=== PATIENT | female | born 1970 | race Caucasian/White ===

== ENCOUNTER → 2016-11-17 | Outpatient (CLI) | payer OTHER ==
[~2016-11-17] MED LIST: DICY10CA26 PO; HCT25T PO; HYDR-34 PO; IBUP800T26 PO; LORA1TAB PO; MELO-195 PO; METO-272 PO; OXYC-199 PO; PNT40TEC PO; POTA10TA36 PO; SUCR1TAB23 PO; VNL75CCR
--- OUTSIDE RECORDS SUMMARY | 2016-11-17 15:30 | XMS REPORT | Continuity of Care Document ---
Author Author [facility] Organization [facility] Address Unknown Phone Unavailable Care Team Providers Care Cargo Service Agent Name Role Phone KELLI MILLER MD PCP Insurance Providers Payer Name Policy Number Subscriber Name Relationship [facility] [id number] Fernanda Villa 18 Self / Same As Patient Advance Directives Directive Response Recorded Date/Time Advance Directives Yes 12/26/14 9:44am Health Care Power of Maintenance Instructor No 12/26/14 9:44am Organ Donor Yes 12/26/14 9:44am Resuscitation Status Full Code 12/26/14 9:44am Problems No known problems or medical conditions. Medications Medication Dose Route Sig Days/Qty Instructions Order Date Discontinued Date Status Venlafaxine HCl 11/04/09 11/01/13 Discontinued Meloxicam (Mobic) 15 Mg PO DAILY 11/04/09 Active Lorazepam 1 Mg PO THREE TIMES A DAY PRN ANXIETY NEEDED FOR ANXIETY 11/04/09 01/06/14 Discontinued Hydrochlorothiazide 25 Mg PO DAILY 11/05/09 Active Potassium Chloride 10 Meq PO DAILY 11/05/09 Active Metoprolol Succinate 50 Mg PO DAILY 11/01/13 Active Hydrochlorothiazide 25 Mg PO DAILY@0900 0 Qty 11/02/13 01/06/14 Discontinued Dicyclomine HCl 1 Each PO FOUR TIMES DAILY For GI UPSET 120 Qty Active Acetaminophen/Hydrocodone Bitart 1 Ea PO EVERY 4HRS For PAIN 30 Qty Active Pantoprazole Sodium 1 Tab PO DAILY 90 Qty 11/02/13 Active Sucralfate 1 Gm PO FOUR TIMES DAILY 7 Days 11/02/13 Active Oxycodone Hcl/Acetaminophen 1-2 Tab PO EVERY 4HRS 1 Qty 01/09/14 Active Ibuprofen (Motrin) 800 Mg PO q8h PRN PAIN 1 Qty 01/09/14 Active Social History Social History Problem Response Recorded Date/Time Alcohol Use Occasionally Uses 11/01/2013 10:23am Recreational Drug Use No 11/01/2013 10:23am Recent Foreign Travel No 11/01/2013 10:23am Recent Infectious Disease Exposure No 11/01/2013 10:23am Hospitalization with Isolation Denies 01/10/2014 4:30pm Sexually Transmitted Disease No 11/01/2013 10:23am Hospital Discharge Instructions No hospital discharge instructions. Plan of Care No plan of care. Functional Status No functional status results. Allergies, Adverse Reactions, Alerts Allergen Type Severity Reaction Status Last Updated No Known Drug Allergies Active 11/04/09 Immunizations Name Given Type Date of Influenza Vaccine 07/19/13 Historical Vital Signs Acute Vital Signs Vital Response Date/Time Temperature (Fahrenheit) 95.5 degrees F (97.6 - 99.5) Temperature (Calculated Celsius) 35.72220 degrees C (36.4 - 37.5) Temperature Source Tympanic Pulse Rate (adult) 62 bpm (60 - 90) Respiratory Rate 14 bpm (12 - 24) O2 Sat by Pulse Oximetry 100 % (88 - 100) Blood Pressure 141/89 mm Hg Pain Pain Intensity 0 Height (Feet) 5 feet Height (Inches) 5.00 inches Height (Calculated Centimeters) 165.677985 cm Weight (Pounds) 125 pounds Weight (Calculated Grams) 05988.047 gm Weight (Calculated Kilograms) 56.663393 kilograms Calculated BMI 20.80 Results No known relevant diagnostic tests, laboratory data and/or discharge summary. Procedures No known history of procedures. Encounters Encounter Location Date/Time Registered Clinic Via [facility] 12/26/14 9:18am Registered Clinic [facility] 12/12/14 2:33pm Registered Recurring [facility] 11/26/14 3:44pm
== END ==
LOC: LAB 15:26
PROVIDERS: ATTEND Nurse Practitioner Family
DX: R06.00 Dyspnea, unspecified (principal)
CPT/HCPCS: 36415; 85379

== ENCOUNTER → 2016-11-30 | Outpatient (CLI) | payer OTHER ==
[~2016-11-30] MED LIST changes: +CATHETER FLUSH 10 ML SYR IV PRN; +IOHEXOL 350 MG/ML 100 ML (OMNIPAQUE 350) VIAL IV ONE; +NS 100 ML (IVPB) BAG IV ONE
--- OUTSIDE RECORDS SUMMARY | 2016-11-30 10:19 | XMS REPORT | Continuity of Care Document ---
Author Author [facility] Organization [facility] Address Unknown Phone Unavailable Care Team Providers Care Stock Sorter Name Role Phone KELLI MILLER MD PCP Insurance Providers Payer Name Policy Number Subscriber Name Relationship [facility] [id number] Fernanda Villa 19 Self / Same As Patient Advance Directives Directive Response Recorded Date/Time Advance Directives Yes 12/26/14 9:44am Health Care Power of Bank Vault Attendant No 12/26/14 9:44am Organ Donor Yes 12/26/14 [...] F (97.6 - 99.5) Temperature (Calculated Celsius) 35.94529 degrees C (36.4 - 37.5) Temperature Source Tympanic Pulse Rate (adult) 62 bpm (60 - 90) Respiratory Rate 14 bpm (12 - 24) O2 Sat by Pulse Oximetry 100 % (88 - 100) Blood Pressure 141/89 mm Hg Pain Pain Intensity 0 Height (Feet) 5 feet Height (Inches) 5.00 inches Height (Calculated Centimeters) 165.428102 cm Weight (Pounds) 125 pounds Weight (Calculated Grams) 97590.047 gm Weight (Calculated Kilograms) 56.237873 kilograms Calculated BMI 20.80 Results No known relevant diagnostic tests, laboratory data and/or discharge summary. Procedures No known history of procedures. Encounters Encounter Location Date/Time Registered Clinic [facility] 12/26/14 9:18am Registered Clinic [facility] 12/12/14 2:33pm Registered Recurring [facility] 11/26/14 3:44pm
--- NOTE | 2016-11-30 11:05 | Diagnostic Imaging Report ---
PROCEDURE: CT abdomen and pelvis with and without contrast. TECHNIQUE: Precontrast acquisitions were acquired through the abdomen and pelvis. Multiple contiguous axial images were obtained through the abdomen and pelvis after the administration of intravenous contrast. INDICATION: Abdominal pain, major bloating, lower back pain, stomach pain, weight gain for about 3 weeks. CONTRAST: 100 mL of Omnipaque 350 was given intravenously. COMPARISON STUDY: Gallbladder ultrasound from [address] chest from November 2015. FINDINGS: There is mild right hydronephrosis with a 1-2 mm calculi in the distal right ureter seen on noncontrast studies 62. No other calculi are identified. The lung bases are clear. The gallbladder is absent. The liver, spleen, pancreas, adrenal gland and left kidney are normal. Urinary bladder appears normal. No ascites, free air or abnormal adenopathy is present. There are no hernias. Moderate to large amount of stool seen throughout the colon. Small bowel loops appear normal. Questionable mild bowel wall thickening of the sigmoid colon. No adjacent inflammatory changes are present. There is no ascites, free air or loculated fluid collections. The appendix is not definitely identified. IMPRESSION: 1. There is a mild right hydronephrosis with 1-2 mm calculi in the region of the distal right ureter. 2. Constipation. 3. Questionable mild thickening of the sigmoid colon. This is upper normal. No focal areas of thickening are present. Possible mild colitis. Dictated by: Dictated on workstation # [id number]
== END ==
LOC: RAD 10:17
PROVIDERS: ATTEND Nurse Practitioner Family
DX: N20.1 Calculus of ureter (principal); K59.00 Constipation, unspecified
CPT/HCPCS: 74178

== ENCOUNTER → 2017-01-16 | Outpatient (CLI) | payer OTHER ==
[~2017-01-16] MED LIST changes: -CATHETER FLUSH 10 ML SYR IV PRN; -IOHEXOL 350 MG/ML 100 ML (OMNIPAQUE 350) VIAL IV ONE; -NS 100 ML (IVPB) BAG IV ONE
--- NOTE | 2017-01-16 10:57 | Diagnostic Imaging Report ---
INDICATION: Right-sided flank pain. FINDINGS: The bowel gas pattern is normal. There is calcification in the right side of the abdomen but, with concurrent CT correlation, this appears to relate to stomach contents, probably a pill. Calcifications in the pelvis are likely phleboliths. IMPRESSION: No urinary tract stones. Dictated by: Dictated on workstation # [id number]
--- NOTE | 2017-01-16 10:58 | Diagnostic Imaging Report ---
PROCEDURE: CT urinary tract, rule out kidney stone. TECHNIQUE: Multiple contiguous axial images were obtained through the abdomen and pelvis without the use of intravenous contrast. INDICATION: Right flank pain. COMPARISON: 11/30/2016. FINDINGS: The lung bases appear clear. The liver, the spleen, the pancreas, and the adrenal glands appear unremarkable. The kidneys demonstrate no hydronephrosis and no stones. The abdominal aorta is normal in caliber. No para-aortic significantly enlarged lymph node is seen. No significant free fluid or fluid collection in the abdomen or pelvis is seen. There is wall thickening within the urinary bladder with question of tiny fat or air density near the anterior aspect of the urinary bladder. This is concerning for cystitis. There is suggestion of prior hysterectomy. The osseous structures appear grossly unremarkable. IMPRESSION: There is significant thickening in the anterior aspect of the urinary bladder wall with surrounding fatty stranding likely related to cystitis. Low density focus in the anterior aspect of the urinary bladder shows question of an air bubble. A gas-forming infection is not excluded. No urinary tract stones. The findings were discussed with Dr. Goldsmith by Dr. Smith at time of dictation. Dictated by: Dictated on workstation # [id number]
== END ==
LOC: RAD 10:26
PROVIDERS: ATTEND Urology
DX: N32.9 Bladder disorder, unspecified (principal); Z87.442 Personal history of urinary calculi
CPT/HCPCS: 74000; 74176

== ENCOUNTER → 2017-04-20 | Outpatient (CLI) | payer OTHER ==
[~2017-04-20] MED LIST changes: +CIPR-225 PO; +ESTR1PAT92 TD; +FURO20TA4 PO; +HYDR-757 PO; +IBUP-1773 PO; +LACT1TAB25 PO; +LIOT5TAB3 PO; +LORA2TAB PO; +MELO15TA39 PO; +METR500T PO; +NFNEB10T PO; +THYR65TA5 PO; +TRAM50TA2 PO; +TRIA1TAB3 PO; +VNL75T PO
--- NOTE | 2017-04-20 11:48 | Diagnostic Imaging Report ---
Transabdominal and transvaginal pelvic ultrasound. INDICATION: Left pelvic pain. The patient is status post hysterectomy and right oophorectomy. FINDINGS: The left ovary is 2.9 x 2.2 x 2.9 CM. There is a 1.8 x 1.7 x 2 cm left ovarian cyst. There is slightly thickened wall with vascularity seen. This probably represents a corpus luteum cysts. No solid mass seen. The venous and arterial waveforms are demonstrated over the left ovary. The urinary bladder appears unremarkable. The vaginal cuff region and right adnexa area appear grossly unremarkable. IMPRESSION: Findings suggestive of a left ovarian corpus luteum cyst. Dictated by: Dictated on workstation # [id number]
--- NOTE | 2017-04-20 11:57 | Diagnostic Imaging Report ---
PROCEDURE: US Thyroid. TECHNIQUE: Multiple real-time grayscale images were obtained of the thyroid in various projections. Thyroid ultrasound. INDICATION: Thyromegaly. Difficulty swallowing. FINDINGS: The right thyroid lobe is 4.8 x 1.3 x 1.3 cm. The left lobe is 5.1 x 1.1 x 1.4 CM. Colloid cyst are seen measuring up to 6 mm in the lower right lobe with internal debris suggested. No internal vascularity is seen. Smaller colloid cyst measuring 3 mm is seen in the lower aspect of the left lobe. No other lesion is seen. No definite solid or large nodule noted. No adjacent cervical lymphadenopathy or mass identified. IMPRESSION: Subcentimeter lesions described are probably colloid cysts. Dictated by: Dictated on workstation # [id number]
== END ==
LOC: RAD 10:47
PROVIDERS: ATTEND Nurse Practitioner Family
DX: R10.2 Pelvic and perineal pain (principal); R13.10 Dysphagia, unspecified; E01.0 Iodine-deficiency related diffuse (endemic) goiter; Z90.710 Acquired absence of both cervix and uterus; Z90.721 Acquired absence of ovaries, unilateral
CPT/HCPCS: 76536; 76830; 76856

== ENCOUNTER → 2017-05-05 | Outpatient (CLI) | payer OTHER ==
[2017-05-05 13:07] LABS: BASOPHILS # (AUTO) 0.1 10^3/uL (0.0-0.1); BASOPHILS % (AUTO) 1 % (0-10); EOSINOPHILS # (AUTO) 0.2 10^3/uL (0.0-0.3); EOSINOPHILS % (AUTO) 2 % (0-10); LYMPHOCYTES # (AUTO) 2.6 X 10^3 (1.0-4.0); LYMPHOCYTES % (AUTO) 29 % (12-44); MEAN CORPUSCULAR HEMOGLOBIN 31 PG (25-34); MEAN CORPUSCULAR HGB CONC 33 G/DL (32-36); MEAN CORPUSCULAR VOLUME 94 FL (80-99); MEAN PLATELET VOLUME 10.5 FL (7.4-10.4); MONOCYTES # (AUTO) 0.9 X 10^3 (0.0-1.0); MONOCYTES % (AUTO) 10 % (0-12); NEUTROPHILS # (AUTO) 5.3 X 10^3 (1.8-7.8); NEUTROPHILS % (AUTO) 58 % (42-75); PLATELET COUNT 271 10^3/uL (130-400); RED BLOOD COUNT 4.83 10^6/uL (4.35-5.85); RED CELL DISTRIBUTION WIDTH 13.6 % (10.0-14.5); WHITE BLOOD COUNT 9.1 10^3/uL (4.3-11.0)
[2017-05-05 13:30] LABS: ERYTHROCYTE SEDIMENTATION RATE 3 MM/HR (0-20)
[2017-05-08 07:54] LABS: LYME AB INTERP Negative (Negative)
[2017-05-08 08:20] LABS: TULAREMIA ANTIBODY <1:20
[2017-05-08 13:51] LABS: EHRLICHIA CHAFFEENSIS G ABY <1:16 (<1:16)
[2017-05-08 15:41] LABS: IGG ROCKY MOUNTAIN SPOTTED FEV <1:16 (<1:16); IGM ROCKY MOUNTAIN SPOTTED FEV <1:10 (<1:10)
== END ==
LOC: LAB 12:01
PROVIDERS: ATTEND Nurse Practitioner Family
DX: R06.00 Dyspnea, unspecified (principal); M06.9 Rheumatoid arthritis, unspecified
CPT/HCPCS: 36415; 82088; 83540; 85025; 85379; 85652; 86038; 86141; 86430; 86618; 86666; 86668; 86757

== ENCOUNTER 2017-06-06 05:38 | Outpatient (CLI) | payer OTHER ==
[~2017-06-06] VITALS: Ht 165.1 cm; Wt 65.8 kg
[~2017-06-06 05:38] MED LIST changes: -CIPR-225 PO; -ESTR1PAT92 TD; -FURO20TA4 PO; -HYDR-757 PO; -IBUP-1773 PO; -LACT1TAB25 PO; -LIOT5TAB3 PO; -LORA2TAB PO; -MELO15TA39 PO; -METR500T PO; -NFNEB10T PO; -THYR65TA5 PO; -TRAM50TA2 PO; -TRIA1TAB3 PO; -VNL75T PO
[2017-06-06] MEDS ORDERED: LIOT5TAB3 PO (12:08)
[2017-06-06] MEDS ORDERED: LORA2TAB PO (12:08)
[2017-06-06] MEDS ORDERED: TRIA1TAB3 PO (12:08)
[2017-06-06] MEDS ORDERED: ESTR1PAT92 TD (12:08)
[2017-06-06] MEDS ORDERED: NFNEB10T PO (12:08)
[2017-06-06] MEDS ORDERED: VNL75T PO (12:08)
[2017-06-06] MEDS ORDERED: THYR65TA5 PO (12:08)
[2017-06-06] MEDS ORDERED: MELO15TA39 PO (12:34)
[2017-06-06] MEDS ORDERED: TRAM50TA2 PO (12:34)
[2017-06-06] MEDS ORDERED: FURO20TA4 PO (12:34)
== END 2017-06-06 12:35 ==
LOC: PREOP 05:38
PROVIDERS: ATTEND Obstetrics & Gynecology
DX: Z01.818 Encounter for other preprocedural examination (principal); R10.2 Pelvic and perineal pain; N83.202 Unspecified ovarian cyst, left side; K66.0 Peritoneal adhesions (postprocedural) (postinfection)

== ENCOUNTER 2017-06-20 17:14 | Inpatient (IN) | payer OTHER ==
[2017-06-20] VITALS (13 sets, daily range): BP systolic 81–121; BP diastolic 42–79
[~2017-06-20] VITALS: Ht 165.1 cm; Wt 64.4 kg
[~2017-06-20 17:14] MED LIST changes: +ESTR1PAT92 TD; +FURO20TA4 PO; +HYDR-757 PO; +IBUP-1773 PO; +LIOT5TAB3 PO; +LORA2TAB PO; +MELO15TA39 PO; +NFNEB10T PO; +THYR65TA5 PO; +TRAM50TA2 PO; +TRIA1TAB3 PO; +VNL75T PO
--- NOTE | 2017-06-20 17:25 | ED General ---
General Stated Complaint: CONVULSIONS Source of Information: Patient Exam Limitations: No Limitations History of Present Illness Time Seen by Provider: 17:22 Initial Comments To ER with reports of convulsions. EMS was summoned by family for seizure-like activity. Patient had cervical injections for neck pain today by Dr. [facility] at [place]. She is also on oxycodone for a recent ovary removal according to her . She has no history of anything like this. Upon EMS arrival she was noted to be flopping all over the bed but alert and looking around the room while doing so in a very unusual manner. She has no seizure history. EMS arrived and gave 5 mg of IV Versed without improvement. She Apparently did run out of lorazepam 2mg #21 which is an 11 day supply but states to his knowledge she has only been out for a day or so. Timing/Duration: 1-2 Days Severity: Moderate Allergies and Home Medications Allergies Coded Allergies: No Known Drug Allergies (Unverified , 11/04/09) Home Medications Estradiol 1 Each Patch.tdsw, 1 EACH TD Twice weekly, (Reported) Furosemide 20 Mg Tablet, 20 MG PO DAILY, (Reported) Hydrocodone/Acetaminophen 1 Each Tablet, 1 EACH PO Q6H, #30 Prescribed by: WANG SCHROEDER on 06/09/17 1536 Lorazepam 2 Mg Tablet, 2 MG PO HS, (Reported) Nebivolol HCl 10 Mg Tab, 10 MG PO DAILY, (Reported) Triamterene/Hydrochlorothiazid 1 Each Tablet, 1 EACH PO DAILY, (Reported) Venlafaxine HCl 75 Mg Tab, 75 MG PO HS, (Reported) Constitutional: see HPI EENTM: see HPI Respiratory: no symptoms reported Cardiovascular: no symptoms reported Genitourinary: no symptoms reported Musculoskeletal: no symptoms reported Skin: no symptoms reported Psychiatric/Neurological: No Symptoms Reported Hematologic/Lymphatic: No Symptoms Reported Immunological/Allergic: no symptoms reported Past Oabtccg-Hyaiok-Eixcta Hx Patient Social History Recent Foreign Travel: No Contact w/Someone Who Travel: No Recent Hopitalizations: No Immunizations Up To Date Date of Influenza Vaccine: Jul 19, 2013 Seasonal Allergies Seasonal Allergies: No Surgeries Surgeries: Adenoidectomy, Appendectomy, Gallbladder, Hysterectomy, Tonsillectomy Cardiovascular Cardiac Disorders: Hypertension Reproductive System Hx Reproductive Disorders: Yes Sexually Transmitted Disease: No Genitourinary Genitourinary Disorders: Kidney Infection Gastrointestinal Gastrointestinal Disorders: Chronic Constipation Musculoskeletal Musculoskeletal Disorders: Rheumatoid Arthritis, Chronic Back Pain Psychosocial Behavioral Health Disorders: Anxiety Physical Exam Vital Signs Vital Sign - Last 12Hours 06/20/17 17:15 Temp 97.5 Pulse 115 Resp 18 B/P (MAP) 142/79 Pulse Ox 95 Capillary Refill : General Appearance: No Apparent Distress, WD/WN Eyes: Bilateral Eye Normal Inspection, Bilateral Eye PERRL, Bilateral Eye EOMI HEENT: PERRL/EOMI, TMs Normal, Normal ENT Inspection Neck: Full Range of Motion, Normal Inspection Respiratory: No Accessory Muscle Use, No Respiratory Distress Cardiovascular: Regular Rate, Rhythm, Normal Peripheral Pulses Gastrointestinal: Normal Bowel Sounds, Non Tender, Soft Extremity: Normal Capillary Refill, Normal Inspection Neurologic/Psychiatric: Alert Skin: Normal Color Comments Intermittent bouts of convusions on the bed including both arms and both legs and arching her back while keeping her eyes open. Some of these convulsions are so intense that her entire body flops up off of the bed. When asked where she is at she replies "wheres wilbert?". She is not postictal after these episodes. She appears to be unable to speak she does not answer questions other than the aforementioned response. This is not typical seizure activity there is none of the typical myoclonus, in fact she actually is convulsing to such a degree that she nearly falls off of the bed more than once. additional 1mg of IV lorazepam ordered. Progress/Results/Core Measures Results/Orders Lab Results Laboratory Tests Test 06/20/17 17:20 Range/Units White Blood Count 12.2 H 4.3-11.0 10^3/uL Red Blood Count 4.70 4.35-5.85 10^6/uL Hemoglobin 14.6 11.5-16.0 G/DL Hematocrit 41 35-52 % Mean Corpuscular Volume 87 80-99 FL Mean Corpuscular Hemoglobin 31 25-34 PG Mean Corpuscular Hemoglobin Concent 36 32-36 G/DL Red Cell Distribution Width 12.5 10.0-14.5 % Platelet Count 250 130-400 10^3/uL Mean Platelet Volume 10.5 H 7.4-10.4 FL Neutrophils (%) (Auto) 83 H 42-75 % Lymphocytes (%) (Auto) 12 12-44 % Monocytes (%) (Auto) 5 0-12 % Eosinophils (%) (Auto) 0 0-10 % Basophils (%) (Auto) 0 0-10 % Neutrophils # (Auto) 10.1 H 1.8-7.8 X 10^3 Lymphocytes # (Auto) 1.4 1.0-4.0 X 10^3 Monocytes # (Auto) 0.6 0.0-1.0 X 10^3 Eosinophils # (Auto) 0.1 0.0-0.3 10^3/uL Basophils # (Auto) 0.0 0.0-0.1 10^3/uL Sodium Level 135 135-145 MMOL/L Potassium Level 3.7 3.6-5.0 MMOL/L Chloride Level 96 L 98-107 MMOL/L Carbon Dioxide Level 23 21-32 MMOL/L Anion Gap 16 H 5-14 MMOL/L Blood Urea Nitrogen 25 H 7-18 MG/DL Creatinine 1.09 0.60-1.30 MG/DL Estimat Glomerular Filtration Rate 54 BUN/Creatinine Ratio 23 Glucose Level 106 H 70-105 MG/DL Calcium Level 9.4 8.5-10.1 MG/DL Total Bilirubin 0.7 0.1-1.0 MG/DL Aspartate Amino Transf (AST/SGOT) 21 5-34 U/L Alanine Aminotransferase (ALT/SGPT) 34 0-55 U/L Alkaline Phosphatase 59 40-136 U/L Total Protein 7.7 6.4-8.2 GM/DL Albumin 4.2 3.2-4.5 GM/DL Thyroid Stimulating Hormone (TSH) 1.18 0.35-4.94 UIU/ML Free Thyroxine 0.83 0.70-1.48 NG/DL Serum Alcohol < 10 <10 MG/DL My Orders Orders - VERO MERAZ APRN Lorazepam Injection (Ativan Injection) (06/20/17 17:30) Cbc With Automated Diff (06/20/17 17:19) Comprehensive Metabolic Panel (06/20/17 17:19) Ua Culture If Indicated (06/20/17 17:19) Drug Screen Stat (Urine) (06/20/17 17:19) Saline Lock/Iv-Start (06/20/17 17:19) Ct Head/Cervical Spine Wo (06/20/17 17:21) Lorazepam Injection (Ativan Injection) (06/20/17 17:30) Thyroid Stimulating Hormone (06/20/17 17:29) Free T4 (Free Thyroxine) (06/20/17 17:29) Alcohol (06/20/17 17:29) Lorazepam Injection (Ativan Injection) (06/20/17 17:45) Ns Iv 1000 Ml (Sodium Chloride 0.9%) (06/20/17 18:00) Lorazepam Injection (Ativan Injection) (06/20/17 18:15) Lorazepam Injection (Ativan Injection) (06/20/17 18:30) Diphenhydramine Injection (Benadryl Inje (06/20/17 19:00) Medications Given in ED Current Medications Medications Dose Ordered Sig/Eugenio Route Start Time Stop Time Status Last Admin Dose Admin Diphenhydramine HCl 12.5 mg ONCE ONCE IVP 06/20/17 19:00 06/20/17 19:01 DC 06/20/17 18:58 12.5 MG Lorazepam 1 mg ONCE ONCE IVP 06/20/17 17:30 06/20/17 17:31 DC 06/20/17 17:30 1 MG Lorazepam 1 mg ONCE ONCE IVP 06/20/17 17:30 06/20/17 17:31 DC 06/20/17 17:48 1 MG Lorazepam 1 mg ONCE ONCE IVP 06/20/17 18:30 06/20/17 18:31 DC 06/20/17 18:37 1 MG Lorazepam 1 mg PRN ONCE IVP 06/20/17 17:45 06/20/17 17:46 DC 06/20/17 17:58 1 MG Lorazepam 2 mg ONCE ONCE IVP 06/20/17 18:15 06/20/17 18:16 DC 06/20/17 18:10 2 MG Vital Signs/I&O Vital Sign - Last 12Hours 06/20/17 17:15 Temp 97.5 Pulse 115 Resp 18 B/P (MAP) 142/79 Pulse Ox 95 Departure Communication (Admissions) Progress Notes 1841-her convulsions continue but are less intense than upon arrival. This appears to be more of a dystonic reaction though she has had no substances to be having a dystonic reaction to. In total, she is already had 6 mg of IV lorazepam and 5 mg of Versed. When the nurse started her IV here she is able to hold the arm still and when verifying medications the patient is able to answer "yes" or "no" to the nurse. 1853-discussed the case with Dr. Victoria. We will admit to ICU, consultation ICU overnight. I'll try a dose of 12 mg of Benadryl just in case this is a dystonic reaction 1901- convulsions stopped, she is still arousable to verbal stimuli and vitals are stable. We'll proceed with CT now that she is able to hold still for the exam. 2032-I did discuss the case with radiologist Dr. Richard at [facility]. She feels that the extradural air is most likely related to the epidural steroid injection today and even without the history of epidural injection it would be of very little clinical significance. Patient continues to rest at this time and the convulsions of stopped. Vitals remain stable. Impression Impression: Primary Impression: Dystonia Additional Impression: Convulsion disorder Disposition: ADMITTED INPATIENT Condition: Stable Admissions Decision to Admit Reason: Admit from ER (General) Decision to Admit/Date: Jun 20, 2017 Time/Decision to Admit Time: 18:54 Departure-Patient Inst. Referrals: MARCIE MIN DO (PCP) Primary Care Physician TRINY MIN DNP (Family) Primary Care Physician VERO MERAZ APRN Jun 20, 2017 17:25
[2017-06-20 17:30] LABS: BASOPHILS % (AUTO) 0 % (0-10); EOSINOPHILS # (AUTO) 0.1 10^3/uL (0.0-0.3); EOSINOPHILS % (AUTO) 0 % (0-10); LYMPHOCYTES # (AUTO) 1.4 X 10^3 (1.0-4.0); LYMPHOCYTES % (AUTO) 12 % (12-44); MEAN CORPUSCULAR HEMOGLOBIN 31 PG (25-34); MEAN CORPUSCULAR HGB CONC 36 G/DL (32-36); MEAN CORPUSCULAR VOLUME 87 FL (80-99); MEAN PLATELET VOLUME 10.5 FL (7.4-10.4); MONOCYTES # (AUTO) 0.6 X 10^3 (0.0-1.0); MONOCYTES % (AUTO) 5 % (0-12); NEUTROPHILS # (AUTO) 10.1 X 10^3 (1.8-7.8); NEUTROPHILS % (AUTO) 83 % (42-75); PLATELET COUNT 250 10^3/uL (130-400); RED CELL DISTRIBUTION WIDTH 12.5 % (10.0-14.5); WHITE BLOOD COUNT 12.2 10^3/uL (4.3-11.0)
[2017-06-20] MEDS ORDERED: LORazepam INJ 2 MG/ML (ATIVAN) VIAL IVP ONE ×5 (17:30→18:30)
[2017-06-20 17:49] LABS: ALCOHOL < 10 MG/DL (<10)
[2017-06-20 17:50] LABS: ALBUMIN 4.2 GM/DL (3.2-4.5); BILIRUBIN,TOTAL 0.7 MG/DL (0.1-1.0); CALCIUM 9.4 MG/DL (8.5-10.1); CREATININE SERUM 1.09 MG/DL (0.60-1.30); POTASSIUM 3.7 MMOL/L (3.6-5.0); TOTAL PROTEIN 7.7 GM/DL (6.4-8.2)
[2017-06-20] MEDS ORDERED: NS IV 1000 ML 1,000 ML IV SCH (18:00)
[2017-06-20 18:14] LABS: THYROID STIMULATING HORMONE 1.18 UIU/ML (0.35-4.94)
[2017-06-20] MEDS ORDERED: diphenhydrAMINE 50 MG/ML INJ (BENADRYL) IVP ONE (19:00)
--- NOTE | 2017-06-20 20:29 | Diagnostic Imaging Report ---
PROCEDURE: CT head and CT cervical spine without contrast. TECHNIQUE: Multiple contiguous axial images were obtained through the brain and cervical spine without the use of intravenous contrast. Sagittal and coronal reformations through the cervical spine were then performed. INDICATION: Seizures. COMPARISON: None FINDINGS: Head CT: No acute intracranial hemorrhage, mass effect or edema seen. The mcgovern-white junction is preserved. The ventricles appear normal. No focal abnormality is seen. Paranasal sinuses and mastoids are clear as visualized. Cervical spine CT: No acute fracture, malalignment or osseous destructive process is seen. Vertebral body heights and disc spaces appear maintained. There is an unusual finding of some extradural air seen within the upper cervical spine. No intradural air is seen and no air is seen tracking into the cranial vault, chest or airway. Etiology is uncertain. Prevertebral soft tissues are otherwise unremarkable. IMPRESSION: 1. There is no evidence of an acute intracranial abnormality. 2. No evidence of an acute cervical spine injury. 3. There is, however, an unusual finding of air surrounding the dura in the upper cervical spine, all extradural. This is of uncertain etiology and significance, however, no additional evidence of traumatic injury is suspected. Additional history is obtained, and patient had epidural today which could account for the air. Dictated by: Dictated on workstation # [id number]
[2017-06-20] MEDS ORDERED: CATHETER FLUSH 10 ML SYR IV PRN (21:15)
[2017-06-20] MEDS: NS IV 1000 ML 1,000 ML IV SCH (21:24)
[2017-06-20] MEDS: CATHETER FLUSH 10 ML SYR IV SCH (21:24)
[2017-06-20 21:42] LABS: BILIRUBIN,URINE NEGATIVE (NEGATIVE); KETONES,URINE NEGATIVE (NEGATIVE); LEUKOCYTE ESTERASE ,URINE NEGATIVE (NEGATIVE); NITRITE,URINE NEGATIVE (NEGATIVE); PH,URINE 6.5 (5-9); PROTEIN,URINE NEGATIVE (NEGATIVE); UROBILINOGEN,URINE NORMAL (NORMAL)
[2017-06-21] VITALS (23 sets, daily range): BP systolic 84–161; BP diastolic 40–85
[2017-06-21 04:34] LABS: BASOPHILS % (AUTO) 0 % (0-10); EOSINOPHILS % (AUTO) 0 % (0-10); LYMPHOCYTES # (AUTO) 1.1 X 10^3 (1.0-4.0); LYMPHOCYTES % (AUTO) 10 % (12-44); MEAN CORPUSCULAR HEMOGLOBIN 31 PG (25-34); MEAN CORPUSCULAR HGB CONC 35 G/DL (32-36); MEAN CORPUSCULAR VOLUME 89 FL (80-99); MEAN PLATELET VOLUME 11.1 FL (7.4-10.4); MONOCYTES # (AUTO) 0.5 X 10^3 (0.0-1.0); NEUTROPHILS # (AUTO) 9.3 X 10^3 (1.8-7.8); PLATELET COUNT 220 10^3/uL (130-400); RED BLOOD COUNT 4.84 10^6/uL (4.35-5.85); RED CELL DISTRIBUTION WIDTH 12.6 % (10.0-14.5); WHITE BLOOD COUNT 10.9 10^3/uL (4.3-11.0)
[2017-06-21 04:37] LABS: MONOCYTES % (AUTO) 5 % (0-12); NEUTROPHILS % (AUTO) 85 % (42-75)
[2017-06-21 04:52] LABS: ANION GAP 11 MMOL/L (5-14); BLOOD UREA NITROGEN 18 MG/DL (7-18); BUN/CREATININE RATIO 23; CALCIUM 8.7 MG/DL (8.5-10.1); CARBON DIOXIDE 23 MMOL/L (21-32); CHLORIDE 104 MMOL/L (98-107); CREATININE SERUM 0.79 MG/DL (0.60-1.30); GFR ESTIMATED > 60; GLUCOSE 107 MG/DL (70-105); MAGNESIUM 2.2 MG/DL (1.8-2.4); PHOSPHORUS 3.8 MG/DL (2.3-4.7); POTASSIUM 3.9 MMOL/L (3.6-5.0); SODIUM 138 MMOL/L (135-145)
[2017-06-21] MEDS: NS IV 1000 ML 1,000 ML IV SCH (05:21)
[2017-06-21] MEDS: CATHETER FLUSH 10 ML SYR IV SCH (06:06)
[2017-06-21] MEDS ORDERED: LORazepam INJ 2 MG/ML (ATIVAN) VIAL ONE ×3 (06:52→07:04)
[2017-06-21] MEDS ORDERED: diphenhydrAMINE 50 MG/ML INJ (BENADRYL) ONE (06:59)
[2017-06-21] MEDS ORDERED: diphenhydrAMINE 50 MG/ML INJ (BENADRYL) IM NR (07:15)
[2017-06-21] MEDS ORDERED: LORazepam INJ 2 MG/ML (ATIVAN) VIAL IVP NR ×4 (07:15→07:30)
[2017-06-21] MEDS ORDERED: PROPOFOL DRIP (ICU) 100 ML IV ONE ×2 (07:18→08:14)
--- NOTE | 2017-06-21 07:33 | Pulmonary Consultation ---
History of Present Illness History of Present Illness Date of Consultation 06/21/17 07:23 Time Seen by Provider: 07:23 Date of Admission History of Present Illness 46yo with hx of chronic pain presented to ED via EMS secondary to seizure like activity. Patient had cervical injections secondary to neck pain per Dr. Johnston at [facility]. No prior hx like this. Upon EMS arrival patient had aggressive convulsions. EMS gave 5mg of Versed without improvement and 6 mg of Ativan was given. Upon entering room patient is having tonic - clonic seizure like activity. Pt is Alert however lethargic and will answer questions. RN is giving 4mg of Ativan now. is at bedside. Unable to obtain ROS. Allergies and Home Medications Allergies Coded Allergies: No Known Drug Allergies (Unverified , 11/04/09) Home Medications Estradiol 1 Each Patch.tdsw, 1 EACH TD Twice weekly, (Reported) Furosemide 20 Mg Tablet, 20 MG PO DAILY, (Reported) Hydrocodone/Acetaminophen 1 Each Tablet, 1 EACH PO Q6H, #30 Prescribed by: WANG SCHROEDER on 06/09/17 1536 Lorazepam 2 Mg Tablet, 2 MG PO HS, (Reported) Nebivolol HCl 10 Mg Tab, 10 MG PO DAILY, (Reported) Triamterene/Hydrochlorothiazid 1 Each Tablet, 1 EACH PO DAILY, (Reported) Venlafaxine HCl 75 Mg Tab, 75 MG PO HS, (Reported) Past Ojnamyh-Dudcyd-Lrorlp Hx Patient Social History Alcohol Use: Rarely Uses Number of Drinks Today: 0 Recreational Drug Use: No Smoking Status: Never a Smoker Recent Foreign Travel: No Contact w/Someone Who Travel: No Recent Infectious Disease Expo: No Recent Hopitalizations: No Immunizations Up To Date Date of Influenza Vaccine: Jun 08, 2017 Seasonal Allergies Seasonal Allergies: No Surgeries History of Surgeries: Yes (LASIK,WISDOM TEETH, left side 2 ribs removed, breast augmentation) Surgeries: Adenoidectomy, Appendectomy, Gallbladder, Hysterectomy, Oophorectomy , Tonsillectomy Respiratory History of Respiratory Disorde: No Cardiovascular History of Cardiac Disorders: Yes Cardiac Disorders: Hypertension Neurological History of Neurological Disord: No Reproductive System : No Hx Reproductive Disorders: Yes Sexually Transmitted Disease: No Genitourinary Genitourinary Disorders: Kidney Infection Gastrointestinal History of Gastrointestinal Di: Yes (bloating, difficulty moving bowels) Gastrointestinal Disorders: Chronic Constipation Musculoskeletal History of Musculoskeletal Dis: Yes Musculoskeletal Disorders: Rheumatoid Arthritis, Chronic Back Pain Endocrine History of Endocrine Disorders: No Cancer History of Cancer: No Psychosocial History of Psychiatric Problem: Yes Behavioral Health Disorders: Anxiety Integumentary History of Skin or Integumenta: No Blood Transfusions History of Blood Disorders: No Family Medical History Family Medial History: Hypertension 19 FATHER Review of Systems Time Seen by Provider: 09:06 Exam Exam Vital Signs Date Time Temp Pulse Resp B/P (MAP) Pulse Ox O2 Delivery O2 Flow Rate FiO2 06/21/17 06:00 67 12 91/60 100 Room Air 06/21/17 05:00 64 39 99/65 100 Room Air 06/21/17 04:00 75 17 119/71 100 Room Air 06/21/17 04:00 96 Room Air 06/21/17 04:00 97.6 Room Air 06/21/17 03:00 68 11 93/57 100 Room Air 06/21/17 02:00 70 13 98/56 100 Room Air 06/21/17 01:00 70 12 96/52 100 Room Air 06/21/17 01:00 70 06/21/17 00:45 67 9 91/53 100 Room Air 06/21/17 00:30 69 12 92/57 100 Room Air 06/21/17 00:00 100 Room Air 06/21/17 00:00 97.9 Room Air 06/21/17 00:00 71 15 90/55 100 Room Air 06/20/17 23:45 71 15 82/48 100 Room Air 06/20/17 23:30 72 19 82/56 100 Room Air 06/20/17 23:15 71 36 86/48 100 Room Air 06/20/17 23:00 73 11 81/48 100 Room Air 06/20/17 22:45 72 11 86/46 100 Room Air 06/20/17 22:37 100 Room Air 06/20/17 22:30 70 10 84/48 100 Room Air 06/20/17 22:15 73 11 85/44 100 Room Air 06/20/17 22:00 73 12 81/42 100 Room Air 06/20/17 21:45 72 10 90/50 100 Room Air 06/20/17 21:30 70 31 115/79 100 Room Air 06/20/17 21:15 74 17 93/53 97 Room Air 06/20/17 21:00 80 12 93/56 96 Room Air 06/20/17 20:48 86 06/20/17 20:47 85 21 121/77 100 Room Air 06/20/17 20:42 98.2 06/20/17 20:40 83 16 98 Room Air 06/20/17 17:15 97.5 115 18 142/79 95 General Appearance: No Apparent Distress, WD/WN HEENT: PERRL/EOMI, TMs Normal, Normal ENT Inspection Neck: Full Range of Motion, Normal Inspection Respiratory: No Accessory Muscle Use, No Respiratory Distress Cardiovascular: Regular Rate, Rhythm, Normal Peripheral Pulses Capillary Refill: Less Than 3 Seconds Extremity: Normal Capillary Refill, Normal Inspection Neurologic/Psychiatric: Alert, Depressed Affect, Other (currently having tonic - clonic seizure like activity ) Skin: Normal Color Results Lab Laboratory Tests 06/20/17 17:20 06/21/17 04:05 Assessment/Plan Assessment/Plan Seizure like tonic-clonic activity probably chemical neuritis from epidural injections- uncontrolled - No hx of seizures -S/p 8mg of Ativan -Pt now intubated secondary to persistent uncontrolled seizure like activity -Seizure like activity stopped after intubation and giving Diprivan, Ativan, Keppra -Pt had sizure like activity last night for 90min prior to becoming controlled, and this morning for about 60min -PT did not become unconscious with seizure like activity. -UDS is positive only for narcotics and benzos Chronic pain/anxiety - chronic -Pt does take Ativan and narcotics chronically at home -She has regular epidural injections. She has never had a reaction like this before -Unknown injection meds at this time Leukocytosis on admission now normal - probably error vs reactive - Doubt infection. Pt has no fever Secondary to persistent seizure like activity will transfer pt to for neurological and continuous EEG monitoring. [facility] do not offer continuous EEG monitoring. I called and they accept pt for transfer. We will med flight pt to [facility]. 120min spent with patient, family and medical team. Update: Unable to transfer pt via air secondary to weather. Will enquire about transfer via ground. I explained to family the benefit of getting patient to [facility] for continuous EEG monitoring and neurological support. At this point the benefit of getting patient to via ground out ways risk of transport. Clinical Quality Measures DVT/VTE Risk/Contraindication: Risk Factor Score Per Nursin RFS Level Per Nursing on Admit: 1=Low/No VTE PPX AYLA PIMENTEL DO Jun 21, 2017 07:33
--- NOTE | 2017-06-21 07:44 | Anesthesia-Procedure Note ---
Procedure Start/Stop Time Date of Procedure: Jun 21, 2017 Start Time: 07:20 Referring Physician: nadja Brief History convulsions following recent cervical spine steroid injection Stop Time: 07:35 Procedures/Interventions Reason for Intubation: convulsions RSI: Yes 100% pre-Ox, [id number]: Yes Intubation Method: orotracheal Otoole (size used 0-4): 2 Grade View: 1 Medications: Propofol (100mg), Succinylcholine (80mg) Mask Ventilation: positive Positive End Tide CO2: Yes Breath Sounds after Intubation: bilateral-equal ETT Securred @ (cm): 21 Intubated with ease: Yes Intubation Complications: no complications Post Intubation Xray-done: Yes (ordered and pending) Care turned over to: Dr. Beltran. RT/RN @ bedside. PJ SYED CRNA Jun 21, 2017 07:44
[2017-06-21] MEDS ORDERED: NS IV 1000 ML 1,000 ML IV SCH (07:45)
[2017-06-21] MEDS ORDERED: LEVETIRACETAM 1,000 MG/NS 100 ML IVPB IV ONE ×2 (07:45)
[2017-06-21] MEDS ORDERED: LORazepam INJ 2 MG/ML (ATIVAN) VIAL IVP ONE ×2 (07:45)
--- NOTE | 2017-06-21 07:56 | Diagnostic Imaging Report ---
INDICATION: Convulsions, dystonia, benzodiazepine withdrawal COMPARISON STUDY: Chest from 2016. FINDINGS: Frontal view of the chest demonstrates the lungs to be clear. The heart, mediastinum, pulmonary vascularity, and visualized bony thorax are normal. IMPRESSION: Normal chest. Dictated by: Dictated on workstation # [id number]
--- NOTE | 2017-06-21 08:00 | Diagnostic Imaging Report ---
INDICATION: Post intubation. Study compared 06/21/2017. FINDINGS: ET tube tip is in the midthoracic trachea and OG catheter goes into the stomach. The lungs are clear. The heart size and vascularity within normal limits. IMPRESSION: Support apparatus projects in good alignment. Dictated by: Dictated on workstation # [id number]
[2017-06-21] MEDS ORDERED: morphine INJ 4 MG/ML 1 ML (VIAL/SYRINGE) ONE (08:14)
[2017-06-21] MEDS ORDERED: PROPOFOL DRIP (ICU) 100 ML IV SCH (08:15)
[2017-06-21] MEDS ORDERED: morphine INJ 4 MG/ML 1 ML (VIAL/SYRINGE) IVP PRN (08:15)
[2017-06-21 09:05] LABS: ABG BASE EXCESS -2.8 MMOL/L (-2.5-2.5); ABG HCO3 22 MMOL/L (23-27); ABG OXYGEN SATURATION 72 % (94-100); ABG PCO2 41 MMHG (35-45); ABG PH 7.35 (7.37-7.43); ABG PO2 41 MMHG (79-93); ABG TCO2 23.2 MMOL/L (21.0-31.0)
[2017-06-21 09:06] LABS: ALLENS TEST POSITIVE
[2017-06-21 09:07] LABS: PATIENT TEMP 98.4
--- NOTE | 2017-06-21 09:46 | History & Physical-Hospitalist ---
HPI History of Present Illness: HPI/Chief Complaint CC: Seizure-like activity following cervical spine injections per Dr Brumfield HPI: This is a 46yoWF clinic patient of Ca Mayers at [facility] w/h/o chronic pain syndromes that presented to the ER via EMS due to seizure-like activity. Apparently she had undergone a cervical spine injection per Dr Brumfield yesterday at 1200 which was uncomplicated but then this type of issue arose at ~4:30pm which resulted in paramedics giving Versed that was not successful in aborting the movements then given Ativan 6mg IV that was successful but patient was still experiencing abnl movements. She was monitored closely in the ICU overnight but then experienced another episode that required airway protection due to hypoxemia on ABG and thus patient was urgently intubated by anaesthesia service in an uncomplicated manner. I have updated her PCP Jo Ann Mayers on the events. Source: RN/MD Date Seen 06/21/17 Time Seen by Provider: 09:30 Attending Physician Irwin Mayers DO PCP Irwin Mayers DO Referring Physician Date of Admission Jun 21, 2017 at 07:59 Home Medications & Allergies Home Medications Reviewed patient Home Medication Reconciliation Form Allergies Allergies Coded Allergies No Known Drug Allergies (Unverified11/04/09) Past Fxxhvie-Keskev-Boluys Hx Patient Social History Marrital Status: Alcohol Use: Rarely Uses Number of Drinks Today: 0 Recreational Drug Use: No Smoking Status: Never a Smoker Physical Abuse Screen: No Sexual Abuse: No Recent Foreign Travel: No Contact w/other who traveled: No Recent Hopitalizations: No Recent Infectious Disease Expo: No Immunizations Up To Date Date of Influenza Vaccine: Jun 08, 2017 Seasonal Allergies Seasonal Allergies: No Surgeries Yes (LASIK,WISDOM TEETH, left side 2 ribs removed, breast augmentation) Adenoidectomy, Appendectomy, Gallbladder, Hysterectomy, Oophorectomy, Tonsillectomy Respiratory No Cardiovascular Yes Hypertension Neurological No Reproductive System : No Hx Reproductive Disorders: Yes Sexually Transmitted Disease: No Genitourinary Kidney Infection Gastrointestinal Yes (bloating, difficulty moving bowels) Chronic Constipation Musculoskeletal Yes Rheumatoid Arthritis, Chronic Back Pain Endocrine History of Endocrine Disorders: No Cancer No Psychosocial History of Psychiatric Problem: Yes Behavioral Health Disorders: Anxiety Integumentary History of Skin or Integumenta: No Blood Transfusions History of Blood Disorders: No Family Medical History Family Hx: Hypertension 19 FATHER Review of Systems ROS-Unable to Obtain: intubation precludes any more details Constitutional: see HPI Physical Exam Physical Exam Vital Signs Vital Sign - Last 12Hours 06/20/17 06/20/17 06/21/17 06/21/17 17:15 20:40 07:15 07:25 Temp 97.5 Pulse 115 Resp 18 B/P (MAP) 142/79 Pulse Ox 95 O2 Delivery Room Air O2 Flow Rate 50.00 FiO2 30 Capillary Refill : Less Than 3 Seconds General Appearance: No Apparent Distress, WD/WN, Other (intubated) Eyes: Bilateral Eye Normal Inspection, Bilateral Eye PERRL Neck: Supple Respiratory: Chest Non Tender, Lungs Clear, Normal Breath Sounds, No Accessory Muscle Use, No Respiratory Distress, Other (intubated) Cardiovascular: Regular Rate, Rhythm, No Edema, No Gallop, No JVD, No Murmur, Normal Peripheral Pulses Gastrointestinal: Normal Bowel Sounds, No Organomegaly, No Pulsatile Mass, Soft Back: Normal Inspection Extremity: Normal Capillary Refill, Normal Inspection, Normal Range of Motion, Non Tender, No Calf Tenderness, No Pedal Edema Neurologic/Psychiatric: Other (sedated on Diprivan) Skin: Normal Color, Warm/Dry Lymphatic: No Adenopathy Results Results/Procedures Lab Laboratory Tests 06/20/17 17:20 06/21/17 04:05 Assessment/Plan Admission Diagnosis Assessment: Seizure like activity requiring intubation for airway protection due to hypoxemia on ABG Recent cervical spine injections yesterday at noon by Dr. Johnston Chronic pain syndrome HTN Anxiety on meds Assessment and Plan Plan: Maintain intubation Transfer to [facility] for higher level of care Updated PCP Dr Jo Ann Mayers and attempting to contact Dr Brumfield but had to leave a message with management instructor regarding a complication following his procedure so will update him on events when he calls me back. Clinical Quality Measures DVT/VTE Risk/Contraindication: Risk Factor Score Per Nursin RFS Level Per Nursing on Admit: 1=Low/No VTE PPX JA CLINTON DO Jun 21, 2017 09:46
[2017-06-21] MEDS ORDERED: SUCCINYLCHOLINE INJ 100 MG/5 ML SYR INJ ONE (10:21)
== END 2017-06-21 10:30 | disposition short-term general hospital (02) | DRG 101 ==
LOC: EDUNIT# 17:14 → ER 17:16 → ICU 20:25 → UNDOADMOB 20:25 → ICU 20:42 → INTOOBSV 06-21 07:59 → OBSVTOIN 06-21 07:59 → UNDODISIN 06-21 10:30
PROVIDERS: ADMIT Internal Medicine; ATTEND Internal Medicine
PROC: 0BH17EZ Insertion of Endotracheal Airway into Trachea, Via Natural or Artificial Opening (ICD-10-PCS; principal; 2017-06-21)
DX: M06.9 Rheumatoid arthritis, unspecified; G89.4 Chronic pain syndrome; M54.9 Dorsalgia, unspecified; G40.409 Other generalized epilepsy and epileptic syndromes, not intractable, without status epilepticus; F41.9 Anxiety disorder, unspecified; M79.2 Neuralgia and neuritis, unspecified; I10 Essential (primary) hypertension
CPT/HCPCS: 36415; 70450; 71010; 72125; 80048; 80053; 80306; 80320; 81000; 82805; 83735; 84100; 84439; 84443; 84703; 85025; 87070; 87081; 87205; 94002; 96374; 96375; G0378

== ENCOUNTER 2017-06-23 14:44 | Inpatient (IN) | payer OTHER ==
[2017-06-23] VITALS (9 sets, daily range): BP systolic 94–139; BP diastolic 51–85
[~2017-06-23] VITALS: Ht 165.1 cm; Wt 70.1 kg
[~2017-06-23 14:44] MED LIST changes: -CIPR-225 PO; -LACT1TAB25 PO; -METR500T PO
--- OUTSIDE RECORDS SUMMARY | 2017-06-23 15:09 | XMS REPORT | Encounter Summary ---
Author Author [facility] Organization [facility] Address Unknown Phone Unavailable Care Team Providers Care Production Officer Name Role Phone PCP Unavailable Encounter Details Date Type Department Care Team Description 06/22/2017 Procedure [facility] [address] [place] [address] Social History Tobacco Use Types Packs/Day Years Used Date Never Smoker Smokeless Tobacco: Never Used Alcohol Use Drinks/Week oz/Week Comments Yes sporadic use Sex Assigned at Date Recorded Not on file as of this encounter Functional Status Functional Status Response Date of Assessment Does the patient have a hearing impairment: No 06/21/2017 as of this encounter Plan of Treatment Not on fileas of this encounter Visit Diagnoses Not on filein this encounter
--- OUTSIDE RECORDS SUMMARY | 2017-06-23 15:09 | XMS REPORT | Clinical Summary ---
Author Author [facility] Organization [facility] Address Unknown Phone Unavailable Care Team Providers Care Bioinformatics Scientist Name Role Phone PCP Unavailable Source Comments Some departments are not documenting in the electronic medical record. If you do not see the information that you expected, contact Release of Information in the Health Information Management department at [phone] for further assistance in locating additional records.[facility] Allergies No Known Allergies Current Medications Prescription Sig. Disp. Refills Start End Date Status Date nebivolol (BYSTOLIC) 10 Take 10 mg by mouth Active mg tablet daily. LORazepam (ATIVAN) 2 mg Take 2 mg by mouth at Active tablet bedtime daily. triamterene-hydrochloroth Take 1 capsule by mouth Active iazide (DYAZIDE) 37.5-25 every morning. mg capsule ergocalciferol (VITAMIN Take 1 capsule by mouth Active D-2) 50,000 unit capsule every Monday. traMADol (ULTRAM) 50 mg Take 50-100 mg by mouth Active tablet every 6 hours as needed for Pain. venlafaxine XR (EFFEXOR Take 75 mg by mouth Active XR) 75 mg capsule daily. Take with food. furosemide (LASIX) 20 mg Take 20 mg by mouth every Active tablet morning. estradiol(+) Apply 1 patch to top of Active (VIVELLE-DOT; ESCLIM; skin as directed every 72 MOLINA) 0.025 mg/24 hr hours. patch famotidine (PEPCID) 20 mg Take 1 tablet by mouth 180 tablet 3 Active tablet daily. 17 Active Problems Problem Noted Date Pseudoseizures 06/22/2017 Pseudoseizures 06/21/2017 Depression 06/21/2017 Anxiety 06/21/2017 Essential hypertension 06/21/2017 Encounters Date Type Specialty Care Team Description 06/22/2017 Procedure Pass Neurosurgery 06/21/2017 [facility] Neurosurgery Maira iHnds MD Pseudoseizures - Encounter 06/22/2017 06/21/2017 Hospital Radiology Arrived Encounter 06/21/2017 Hospital Radiology Arrived Encounter 06/20/2017 Hospital Radiology Arrived Encounter from Last 3 Months Social History Tobacco Use Types Packs/Day Years Used Date Never Smoker Smokeless Tobacco: Never Used Alcohol Use Drinks/Week oz/Week Comments Yes sporadic use Sex Assigned at Date Recorded Not on file Last Filed Vital Signs Vital Sign Reading Time Taken Blood Pressure 131/77 06/22/2017 4:00 PM CDT Pulse 63 06/22/2017 4:00 PM CDT Temperature 37 C (98.6 F) 06/22/2017 2:00 PM CDT Respiratory Rate - - Oxygen Saturation 100% 06/22/2017 4:00 PM CDT Inhaled Oxygen - - Concentration Weight 69.5 kg (153 lb 3.5 oz) 06/21/2017 1:00 PM CDT Height 165.1 cm (5' 5") 06/21/2017 1:00 PM CDT Body Mass Index 25.5 06/21/2017 1:00 PM CDT Plan of Treatment Health Maintenance Due Date Last Done Comments PHYSICAL (COMPREHENSIVE) 1978 EXAM PERTUSSIS VACCINE 1982 TETANUS VACCINE 1988 CERVICAL CANCER SCREENING 2001 BREAST CANCER SCREENING 2011 INFLUENZA VACCINE 06/18/2017 Results * CT HEAD WO CONTRAST (06/22/2017 12:37 PM) Specimen Performing Laboratory [facility] RESULTS Impressions Normal CT scan of the head. Finalized by Raymond Holm M.D. on 06/22/2017 12:46 PM. Dictated by Raymond Holm M.D. on 06/22/2017 12:44 PM. Narrative EXAM: CT HEAD HISTORY: , reported pneumocephalus post epidural injection now with non-epileptic spastic movements, TECHNIQUE: Multiple contiguous axial images were obtained of the brain without intravenous contrast. COMPARISON: CT head June 20, 2017 FINDINGS: Dr. Raymond Holm M.D. has personally reviewed these images and formulated the interpretations and opinions expressed in this report. The ventricles and subarachnoid spaces are normal in size and configuration. There is no midline shift or mass effect. The mcgovern white matter interfaces are maintained. The basal cisterns are patent. There is no evidence of acute intracranial hemorrhage or extra-axial fluid collection. The mastoid air cells and visualized paranasal sinuses are well-aerated. Procedure Note Interface, Radiant Results - 06/22/2017 12:49 PM CDT EXAM: CT HEAD HISTORY: , reported pneumocephalus post epidural injection now with non-epileptic spastic movements, TECHNIQUE: Multiple contiguous axial images were obtained of the brain without intravenous contrast. COMPARISON: CT head June 20, 2017 FINDINGS: Dr. Raymond Holm M.D. has personally reviewed these images and formulated the interpretations and opinions expressed in this report. The ventricles and subarachnoid spaces are normal in size and configuration. There is no midline shift or mass effect. The mcgovern white matter interfaces are maintained. The basal cisterns are patent. There is no evidence of acute intracranial hemorrhage or extra-axial fluid collection. The mastoid air cells and visualized paranasal sinuses are well-aerated. IMPRESSION Normal CT scan of the head. Finalized by Raymond Holm M.D. on 06/22/2017 12:46 PM. Dictated by Raymond Holm M.D. on 06/22/2017 12:44 PM. * CBC AND DIFF (06/22/2017 4:15 AM) Component Value Ref Range White Blood Cells 12.8 (H) 4.5 - 11.0 K/UL RBC 4.51 4.0 - 5.0 M/UL Hemoglobin 14.2 12.0 - 15.0 GM/DL Hematocrit 40.5 36 - 45 % MCV 89.8 80 - 100 FL MCH 31.4 26 - 34 PG MCHC 35.0 32.0 - 36.0 G/DL RDW 13.4 11 - 15 % Platelet Count 189 150 - 400 K/UL MPV 9.4 7 - 11 FL Neutrophils 84 (H) 41 - 77 % Lymphocytes 11 (L) 24 - 44 % Monocytes 5 4 - 12 % Eosinophils 0 0 - 5 % Basophils 0 0 - 2 % Absolute Neutrophil Count 10.70 (H) 1.8 - 7.0 K/UL Absolute Lymph Count 1.40 1.0 - 4.8 K/UL Absolute Monocyte Count 0.70 0 - 0.80 K/UL Absolute Eosinophil Count 0.00 0 - 0.45 K/UL Absolute Basophil Count 0.00 0 - 0.20 K/UL Specimen Performing Laboratory [facility] [address] [place] [address] * PHOSPHORUS (06/22/2017 4:15 AM) Component Value Ref Range Phosphorus 1.8 (L) 2.0 - 4.0 MG/DL Specimen Performing Laboratory [facility] [address] [place] [address] * MAGNESIUM (06/22/2017 4:15 AM) Component Value Ref Range Magnesium 2.0 1.6 - 2.6 mg/dL Specimen Performing Laboratory [facility] [address] [place] [address] * IONIZED CALCIUM (06/22/2017 4:15 AM) Component Value Ref Range Ionized Calcium 1.11 1.0 - 1.3 MMOL/L Specimen Performing Laboratory [facility] [address] [place] [address] * BASIC METABOLIC PANEL (06/22/2017 4:15 AM) Component Value Ref Range Sodium 138 137 - 147 MMOL/L Potassium 3.9 3.5 - 5.1 MMOL/L Chloride 110 98 - 110 MMOL/L CO2 25 21 - 30 MMOL/L Anion Gap 3 3 - 12 Glucose 111 (H) 70 - 100 MG/DL Blood Urea Nitrogen 14 7 - 25 MG/DL Creatinine 0.77 0.4 - 1.00 MG/DL Calcium 8.5 8.5 - 10.6 MG/DL eGFR Non >60 >60 mL/min Comment: The eGFR is not validated for use in drug dosing adjustments. Continue to use estimated creatinine clearance per dosing reference text. Please contact the Clinical Pharmacist for questions. eGFR >60 >60 mL/min Comment: The eGFR is not validated for use in drug dosing adjustments. Continue to use estimated creatinine clearance per dosing reference text. Please contact the Clinical Pharmacist for questions. Specimen Performing Laboratory [facility] [address] [place] [id number] * PTT (APTT) (06/21/2017 2:00 PM) Only the most recent of 2 results within the time period is included. Component Value Ref Range APTT 22.9Comment: NOTE NEW REFERENCE RANGES 21.0 - 39.0 SEC Specimen Performing Laboratory [facility] [address] [place] [address] * PROTIME INR (PT) (06/21/2017 2:00 PM) Only the most recent of 2 results within the time period is included. Component Value Ref Range INR 1.0 0.8 - 1.2 Specimen Performing Laboratory [facility] [address] [place] [address] * CBC (06/21/2017 2:00 PM) Only the most recent of 2 results within the time period is included. Component Value Ref Range White Blood Cells 13.6 (H) 4.5 - 11.0 K/UL RBC 4.01 4.0 - 5.0 M/UL Hemoglobin 12.4 12.0 - 15.0 GM/DL Hematocrit 36.5 36 - 45 % MCV 91.1 80 - 100 FL MCH 30.9 26 - 34 PG MCHC 33.9 32.0 - 36.0 G/DL RDW 13.4 11 - 15 % Platelet Count 171 150 - 400 K/UL MPV 9.3 7 - 11 FL Specimen Performing Laboratory [facility] [address] [place] [address] * BETA-HCG (06/21/2017 2:00 PM) Component Value Ref Range Beta-HCG,Serum 2 <5 U/L Specimen Performing Laboratory [facility] [address] [place] [address] * THYROID STIMULATING HORMONE-TSH (06/21/2017 2:00 PM) Component Value Ref Range TSH 0.667 0.35 - 5.00 MCU/ML Specimen Performing Laboratory [facility] [address] [place] [address] * COMPREHENSIVE METABOLIC PANEL (06/21/2017 2:00 PM) Only the most recent of 2 results within the time period is included. Component Value Ref Range Sodium 139 137 - 147 MMOL/L Potassium 4.0Comment: SLT HEMOLYSIS 3.5 - 5.1 MMOL/L Chloride 112 (H) 98 - 110 MMOL/L Glucose 146 (H) 70 - 100 MG/DL Blood Urea Nitrogen 16 7 - 25 MG/DL Creatinine 0.70 0.4 - 1.00 MG/DL Calcium 7.6 (L) 8.5 - 10.6 MG/DL Total Protein 5.7 (L) 6.0 - 8.0 G/DL Total Bilirubin 0.4 0.3 - 1.2 MG/DL Albumin 3.0 (L) 3.5 - 5.0 G/DL Alk Phosphatase 38 25 - 110 U/L AST (SGOT) 22 7 - 40 U/L CO2 21 21 - 30 MMOL/L ALT (SGPT) 19 7 - 56 U/L Anion Gap 6 3 - 12 eGFR Non >60 >60 mL/min Comment: The eGFR is not validated for use in drug dosing adjustments. Continue to use estimated creatinine clearance per dosing reference text. Please contact the Clinical Pharmacist for questions. eGFR >60 >60 mL/min Comment: The eGFR is not validated for use in drug dosing adjustments. Continue to use estimated creatinine clearance per dosing reference text. Please contact the Clinical Pharmacist for questions. Specimen Performing Laboratory [facility] [address] [place] [address] * URINALYSIS, MICROSCOPIC (06/21/2017 12:45 PM) Component Value Ref Range WBCs,UA 2-10 0 - 2 /HPF RBCs,UA 0-2 0 - 3 /HPF WBC Clumps PRESENT Squamous Epithelial Cells 0-2 0 - 5 Specimen Performing Laboratory [facility] [address] [place] [address] * URINALYSIS DIPSTICK (06/21/2017 12:45 PM) Component Value Ref Range Color,UA STRAW Turbidity,UA CLEAR CLEAR-CLEAR Specific [place]-Urine 1.010 1.003 - 1.035 pH,UA 5.0 5.0 - 8.0 Protein,UA NEG NEG-NEG Glucose,UA NEG NEG-NEG Ketones,UA NEG NEG-NEG Bilirubin,UA NEG NEG-NEG Blood,UA 1+ (A) NEG-NEG Urobilinogen,UA NORMAL NORM-NORMAL Nitrite,UA NEG NEG-NEG Leukocytes,UA NEG NEG-NEG Urine Ascorbic Acid, UA NEG NEG-NEG Specimen Performing Laboratory [facility] [address] [place] [address] * GENERAL RAD CHEST EXTERNAL IMAGING (06/21/2017 12:15 AM) Only the most recent of 2 results within the time period is included. Narrative This order has been auto finalized and does not contain a result. * CT HEAD EXTERNAL IMAGING (06/20/2017) Narrative This order has been auto finalized and does not contain a result. from Last 3 Months
--- OUTSIDE RECORDS SUMMARY | 2017-06-23 15:09 | XMS REPORT | Continuity of Care Document ---
Author Author [facility] Organization [facility] Address Unknown Phone Unavailable Care Team Providers Care Jewelry Drilling Machine Operator Name Role Phone [employer] Unavailable Unavailable Problems Medications Allergies, Adverse Reactions, Alerts Immunizations Results Vital Signs Encounters Location Location Details Encounter Type Encounter Number Reason For Visit Attending Provider ADM Date DC Date Status Source INPATIENT [id number] PAULIE WILLSON 06/21/20172016 Active [facility] O Active [facility] Procedures Plan of Care Social History Assessment and Plan Family History Value Date Source Advance Directives Order Name Results Value Date Source
--- OUTSIDE RECORDS SUMMARY | 2017-06-23 15:10 | XMS REPORT | Encounter Summary ---
Author Author [facility] Organization [facility] Address Unknown Phone Unavailable Care Team Providers Care Conservation Science Officer Name Role Phone PCP Unavailable Encounter Details Date Type Department Care Team Description 06/21/2017 Hospital [facility] Arrived Encounter Hospital Radiology [address] [place] [address] Social History Tobacco Use Types Packs/Day Years [...]
--- OUTSIDE RECORDS SUMMARY | 2017-06-23 15:10 | XMS REPORT | Encounter Summary ---
Author Author [facility] Organization [facility] Address Unknown Phone Unavailable Care Team Providers Care Manager Business Continuity Name Role Phone PCP Unavailable Encounter Details Date Type Department Care Team Description 06/21/2017 Hospital [facility] Arrived Encounter Hospital Radiology [address] [place] [address] Social History Tobacco Use Types Packs/Day Years [...]
--- OUTSIDE RECORDS SUMMARY | 2017-06-23 15:10 | XMS REPORT | Encounter Summary ---
Author Author [facility] Organization [facility] Address Unknown Phone Unavailable Care Team Providers Care Bull Rider Name Role Phone PCP Unavailable Encounter Details Date Type Department Care Team Description 06/20/2017 Hospital [facility] Arrived Encounter Hospital Radiology [address] [place], [place] [id number] Social History Tobacco Use Types Packs/Day Years Used Date Never Smoker Smokeless Tobacco: Never Used Alcohol Use Drinks/Week oz/Week Comments Yes sporadic use Sex Assigned at Date Recorded Not on file as of this encounter Plan of Treatment Not on fileas of this encounter Visit Diagnoses Not on filein this encounter
--- OUTSIDE RECORDS SUMMARY | 2017-06-23 15:10 | XMS REPORT | Encounter Summary ---
Author Author [facility] Organization [facility] Address Unknown Phone Unavailable Care Team Providers [facility] Dean Name Role Phone PCP Unavailable Reason for Visit * Auth/Cert Status Reason Specialty Diagnoses / Referred By Referred To Procedures Contact Contact Diagnoses New onset seizures Seizures (HCC) Encounter Details Date Type Department Care Team Description 06/21/2017 [facility] Maira Hinds MD Pseudoseizures - Encounter [address] 06/22/2017 [place] [address] [address] [place] [address] [phone] Social History Tobacco Use Types Packs/Day Years Used Date Never Smoker Smokeless Tobacco: Never Used Alcohol Use Drinks/Week oz/Week Comments Yes sporadic use Sex Assigned at Date Recorded Not on file as of this encounter Last Filed Vital Signs Vital Sign Reading [...] Mass Index 25.5 06/21/2017 1:00 PM CDT in this encounter Functional Status Functional Status Response Date of Assessment Does the patient have a hearing impairment: No 06/21/2017 as of this encounter Discharge Summaries * Raymond Ribeiro DO - 06/22/2017 5:55 PM CDT Formatting of this note may be different from the original. Physician Discharge Summary Name: Fernanda Villa Date Of : 1970 Age: 46 years Admit date: 06/21/2017 Discharge date: 06/22/2017 Attending Physician: Maira Hinds Service: Neurology Critical Care Physician Summary completed by: Raymond Ribeiro DO Reason for hospitalization: Pseudoseizures Significant PMH: Past Medical History: Diagnosis Date Anxiety Chronic low back pain Constipation Hypertension Rheumatoid arthritis (HCC) Allergies: Review of patient's allergies indicates no known allergies. Admission Physical Exam notable for: Pt initially intubated and sedated. After sedation turned off she was extubated. She was lethargic, but no focal findings on exam. Neurologically intact. Admission Lab/Radiology studies notable for: reported mild pneumocephalus on CT from outside hospital. This was not reproduced on CT prior to discharge. Brief Hospital Course: The patient was admitted and the following issues were addressed during this hospitalization: (with pertinent details). Pseudoseizures:Pt was initially admitted for suspected refractory seizures requiring intubation and persistent sedation. She was extubated and placed on 24 hour video EEG monitoring. She demonstrated multiple episodes of "convulsive " activity throughout the night, each without epileptic activity on EEG. She was always awake, alert, and regularly crying during episodes. No post-ictal state and no anti-epileptics were given during episodes. CT head taken to rule out additional pathology which showed no abnormalities. Psych clinical nurse specialist evaluated pt and explained pseudoseizures being related to stress and depression. Provided outlets and encouraged her to seek psychiatrist to oversee medications. She and family expressed understanding and desire to go home. Contacted primary care physician to explain most likely dx and they said she could be seen as early as next day. Depression/Anxiety: Continued venlefaxine, no changes HTN: Continued bistolic as inpt. Held triamterene/HCTZ and lasix as BP low/ normal. Pt to resume on discharge. GERD: Continue GRAIN PICKER pepcid Condition at Discharge: Stable Discharge Diagnoses: Pseudoseizures Hospital Problems Active Problems * (Principal)Pseudoseizures Depression Anxiety Essential hypertension Pseudoseizures Surgical Procedures: None Significant Diagnostic Studies and Procedures: CT head (normal brain), EEG: negative for epileptiform activity Consults: Neurology and Psychiatry Patient Disposition: Home Patient instructions/medications: Activity as Tolerated It is important to keep increasing your activity level after you leave the hospital. Moving around can help prevent blood clots, lung infection (pneumonia ) and other problems. Gradually increasing the number of times you are up moving around will help you return to your normal activity level more quickly. Continue to increase the number of times you are up to the chair and walking daily to return to your normal activity level. Begin to work toward your normal activity level after follow-up appointment over the next week to two weeks. Report These Signs and Symptoms Please contact your doctor if you have any of the following symptoms: temperature higher than 100 degrees F, persistent nausea and/or vomiting or difficulty breathing, loss of bowel or bladder control. Questions About Your Stay For questions or concerns regarding your hospital stay. Call [phone] Discharging attending physician: MAIRA HINDS [[id number]] Regular Diet You have no dietary restriction. Please continue with a healthy balanced diet. Return Appointment Please contact primary care provider tomorrow to schedule follow-up appointment at your earliest convenience. Outside Provider Dr Mayers [facility] [place] Information [facility] is a gathering place for individuals, families, and friends living with serious or chronic physical illness. They offer education and support programs that help you live your life to the fullest. Unless otherwise noted, programs are offered at NO CHARGE. However, REGISTRATION IS REQUIRED 48 hours in advance. To arrange for a tour, register for a class, or ask a questions please call [phone]. You can also visit [email or web address] for more information. Additional Discharge Instructions Please ask your primary care provider for reference to a psychiatrist to assist with medication management. Current Discharge Medication List START taking these medications Details famotidine (PEPCID) 20 mg tablet Take 1 tablet by mouth daily. Qty: 180 tablet, Refills: 3 PRESCRIPTION TYPE: Normal CONTINUE these medications which have NOT CHANGED Details ergocalciferol (VITAMIN D-2) 50,000 unit capsule Take 1 capsule by mouth every Monday. PRESCRIPTION TYPE: Historical Med estradiol(+) (VIVELLE-DOT; ESCLIM; MOLINA) 0.025 mg/24 hr patch Apply 1 patch to top of skin as directed every 72 hours. PRESCRIPTION TYPE: Historical Med furosemide (LASIX) 20 mg tablet Take 20 mg by mouth every morning. PRESCRIPTION TYPE: Historical Med LORazepam (ATIVAN) 2 mg tablet Take 2 mg by mouth at bedtime daily. PRESCRIPTION TYPE: Historical Med nebivolol (BYSTOLIC) 10 mg tablet Take 10 mg by mouth daily. PRESCRIPTION TYPE: Historical Med traMADol (ULTRAM) 50 mg tablet Take 50-100 mg by mouth every 6 hours as needed for Pain. PRESCRIPTION TYPE: Historical Med triamterene-hydrochlorothiazide (DYAZIDE) 37.5-25 mg capsule Take 1 capsule by mouth every morning. PRESCRIPTION TYPE: Historical Med venlafaxine XR (EFFEXOR XR) 75 mg capsule Take 75 mg by mouth daily. Take with food. PRESCRIPTION TYPE: Historical Med Scheduled appointments: Please schedule appointment with primary care physician Pending items needing follow up: n/a Signed: Raymond Ribeiro DO 06/22/2017 cc: Primary Care Physician: Irwin Mayers Iii Verified Referring physicians: Ca Mayers APRN Additional provider(s): in this encounter Discharge Instructions * Discharge Instr - Appointments - Raymond Ribeiro DO - 06/22/2017 2:38 PM CDT Please schedule appointment with primary care physician in this encounter Medications at Time of Discharge Medication Sig. Disp. Refills Start Date End Date ergocalciferol (VITAMIN Take 1 capsule by mouth D-2) 50,000 unit capsule every Monday. estradiol(+) Apply 1 patch to top of (VIVELLE-DOT; ESCLIM; skin as directed every 72 MOLINA) 0.025 mg/24 hr hours. patch famotidine (PEPCID) 20 mg Take 1 tablet by mouth 180 tablet 3 2016 tablet daily. furosemide (LASIX) 20 mg Take 20 mg by mouth every tablet morning. LORazepam (ATIVAN) 2 mg Take 2 mg by mouth at tablet bedtime daily. nebivolol (BYSTOLIC) 10 Take 10 mg by mouth mg tablet daily. traMADol (ULTRAM) 50 mg Take 50-100 mg by mouth tablet every 6 hours as needed for Pain. triamterene-hydrochloroth Take 1 capsule by mouth iazide (DYAZIDE) 37.5-25 every morning. mg capsule venlafaxine XR (EFFEXOR Take 75 mg by mouth XR) 75 mg capsule daily. Take with food. as of this encounter Progress Notes * Meliza Leon - 06/22/2017 11:39 AM CDT Patient disconnected from VEEG at 11:16:16 without complications. Patient educated on how to remove remaining glue from scalp with an oil based product. A few electrode locations produced skin breakdown which was addressed to patient and patient's family. * Ivania Fletcher - 06/22/2017 10:22 AM CDT Pt event at 10:20, 06/22/2017 * Ivania Fletcher - 06/22/2017 9:22 AM CDT Pt event at 9:20 am, 06/22/2017 * Missael Patel - 06/22/2017 8:58 AM CDT EEG signals are clean of artifact and visible. Video was visualized and recording. Audio recording was checked and functioning. The VEEG system is on- line. Central monitoring station is functioning appropriately. The event button is operational and within reach of the patient and/or patient' s family. * Raymond Ribeiro DO - 06/22/2017 6:54 AM CDT Formatting of this note may be different from the original. Neuro Critical Care Progress Note Fernanda Villa Admission Date: 06/21/2017 LOS: 1 day Full Code ASSESSMENT/PLAN Patient Active Problem List Diagnosis Date Noted Seizures (HCC) 06/21/2017 Depression 06/21/2017 Anxiety 06/21/2017 Essential hypertension 06/21/2017 Fernanda Villa is a 46 y.o. female with history of anxiety, depression and hypertension who was transferred from OSH to [facility] for video EEG monitoring of reported refractory seizures on 06/21. Hospital and ICU course: 06/21: Transferred from [facility] after intubation following third reported seizure, extubated after arrival, started video EEG 06/22: EEG negative for epileptic activity with "convulsive" Neuro: Pseudoseizures - Patient's description inconsistent the generalized seizures - CT head with minimal pneumocephalus at OSH - Neuro-ICU monitoring, neurochecks q 1 hrs, parameters for Prevention of secondary brain injury(avoid hypotension, hypoxia, fever, hyperglycemia, significant anemia, diagnose and treatment of seizures, electrolyte abnormalities) - hold anti-epileptics as EEG has demonstrated no epileptic activity with spastic episodes - discontinue video EEG - Obtain new CT head w/o contrast to r/o additional process - transfer to floor status today Depression/Anxiety - Discussed high likelihood of stress contributing to spastic episodes - consult psych [employer] to assist with management of depressive and anxiety symptoms Sedation/Pain Management: n/a - intubated on presentation with propofol sedation, dc'd soon after arrival to NEICU Cardiac: Hypertension - SBP goal: 100-160 - MAP goal > 65 - GRAIN PICKER nebivolol - Holding diuretics as BP has been stable Respiratory: Date of Intubation: 06/21 at OSH Reason: Airway protection Date of Extubation: 06/21 at [facility] d/t pt likely not being post-ictal at time of admit - PaO2 goal >100, Spo2 goal >95% GI: - Feeding: regular diet - neurosurgery bowel regimen, ensure daily BM Heme: - assess for coagulopathy, maintain platelets above 100k, INR <1.5 ID: - aim for normothermia, Temp <38.3 celsius, normothermia protocol if febrile Renal: - Net I/O -1500/24hrs (she had received 2L crystalloid prior to transfer) - Aim for normovolemia Endocrine: - Blood glucose goal 100-180mg/dl FEN: - IVF: n/a, pt able to eat and drink - Magnesium goal >2.0, i-Dariel goal > 1.0, Potassium goal >4.0 mEq/L Prophylaxis Review: A)GI: [id number] (pepcid) B) Lines: No C) Urinary Catheter: No D) Antibiotic Usage: No E) VTE: Pharmacological prophylaxis; Enoxaparin F) Isolation: n/a G)Seizures: video EEG, no pharmacologic suppression I) Restraints: Patient assessed for need for restraints. Disposition/Family: downgrade to floor status, family aware Primary service: Neuro Critical Care Consults: epileptology SUBJECTIVE Fernanda Villa is a 46 y.o. female. Overnight Events: multiple convulsive events, but pt conversant/A&O during each w/o loss of bowel/bladder fx. Patient had additional event during rounds today which seemed to be more emotionally troublesome to pt than neurologically. OBJECTIVE Vital Signs: Last Filed Vital Signs: 24 Hour Range BP: 108/65 (10/05 0500) Temp: 36.9 C (98.5 F) (06/22 400) Pulse: 70 (06/22 500) Respirations: 13 PER MINUTE (06/22 500) SpO2: 100 % (06/22 500) O2 Delivery: None (Room Air) (06/22 500) Height: 165.1 cm (65") (06/21 1300) Weight: 69.5 kg (153 lb 3.5 oz) (06/21 1300) BP: (95-125)/(49-76) Temp: [36.7 C (98 F)-36.9 C (98.5 F)] Pulse: [57-102] Respirations: [4 PER MINUTE-30 PER MINUTE] SpO2: [98 %-100 %] O2 Delivery: None (Room Air) Intensity Pain Scale 0-10 (Pain 1): (not recorded) Vitals: 06/21/17 1300 Weight: 69.5 kg (153 lb 3.5 oz) Lines: Peripheral Line Drains: None Intake/Output Summary: (Last 24 hours) Intake/Output Summary (Last 24 hours) at 06/22/17 0655 Last data filed at 06/22/17 0400 Gross per 24 hour Intake 773.75 ml Output 2305 ml Net -1531.25 ml Physical Exam: Blood pressure 108/65, pulse 70, temperature 36.9 C (98.5 F), height 165.1 cm (65"), weight 69.5 kg (153 lb 3.5 oz), SpO2 100 %, unknown if currently . [place] coma score: E: 4 - Opens eyes on own M: 6 - Follows simple motor commands V: 5 - Alert and oriented Neuro: Mental Status: A&O x3 Cranial Nerves: Cranial nerves 2-12 INTACT by inspection. - EOM: intact Motor: RUE: Strength: 5/5 RLE: Strength: 5/5 LUE: Strength: 5/5 LLE: Strength: 5/5 Sensory: normal Lungs: clear to auscultation bilaterally Heart: regular rate and rhythm, S1, S2 normal, no murmur, click, rub or gallop Abdomen: soft, non-tender. Bowel sounds normal. No masses, no organomegaly Extremities: extremities normal, atraumatic, no cyanosis or edema Skin: Skin color, texture, turgor normal. No rashes or lesions Point of Care Testing: (Last 24 hours) Glucose: (!) 111 (06/22/17 0415) Lab Review: 24-hour labs: Results for orders placed or performed during the hospital encounter of (from the past 24 hour(s)) URINALYSIS DIPSTICK Collection Time: 06/21/17 12:45 PM Result Value Ref Range Color,UA STRAW Turbidity,UA CLEAR CLEAR-CLEAR Specific Wilbur-Urine 1.010 1.003 - 1.035 pH,UA 5.0 5.0 - 8.0 Protein,UA NEG NEG-NEG Glucose,UA NEG NEG-NEG Ketones,UA NEG NEG-NEG Bilirubin,UA NEG NEG-NEG Blood,UA 1+ (A) NEG-NEG Urobilinogen,UA NORMAL NORM-NORMAL Nitrite,UA NEG NEG-NEG Leukocytes,UA NEG NEG-NEG Urine Ascorbic Acid, UA NEG NEG-NEG URINALYSIS, MICROSCOPIC Collection Time: 06/21/17 12:45 PM Result Value Ref Range WBCs,UA 2-10 0 - 2 /HPF RBCs,UA 0-2 0 - 3 /HPF WBC Clumps PRESENT Squamous Epithelial Cells 0-2 0 - 5 COMPREHENSIVE METABOLIC PANEL Collection Time: 06/21/17 12:50 PM Result Value Ref Range Sodium PROBABLE IV CONTAMINATION 137 - 147 MMOL/L Potassium PROBABLE IV CONTAMINATION 3.5 - 5.1 MMOL/L Chloride PROBABLE IV CONTAMINATION 98 - 110 MMOL/L Glucose PROBABLE IV CONTAMINATION 70 - 100 MG/DL Blood Urea Nitrogen PROBABLE IV CONTAMINATION 7 - 25 MG/DL Creatinine PROBABLE IV CONTAMINATION 0.4 - 1.00 MG/DL Calcium PROBABLE IV CONTAMINATION 8.5 - 10.6 MG/DL Total Protein PROBABLE IV CONTAMINATION 6.0 - 8.0 G/DL Total Bilirubin PROBABLE IV CONTAMINATION 0.3 - 1.2 MG/DL Albumin PROBABLE IV CONTAMINATION 3.5 - 5.0 G/DL Alk Phosphatase PROBABLE IV CONTAMINATION 25 - 110 U/L AST (SGOT) PROBABLE IV CONTAMINATION 7 - 40 U/L CO2 PROBABLE IV CONTAMINATION 21 - 30 MMOL/L ALT (SGPT) PROBABLE IV CONTAMINATION 7 - 56 U/L Anion Gap 4 3 - 12 eGFR Non NOT CALCULATED >60 mL/min eGFR NOT CALCULATED >60 mL/min CBC Collection Time: 06/21/17 12:50 PM Result Value Ref Range White Blood Cells PROBABLE IV CONTAMINATION 4.5 - 11.0 K/UL RBC PROBABLE IV CONTAMINATION 4.0 - 5.0 M/UL Hemoglobin PROBABLE IV CONTAMINATION 12.0 - 15.0 GM/DL Hematocrit PROBABLE IV CONTAMINATION 36 - 45 % MCV PROBABLE IV CONTAMINATION 80 - 100 FL MCH PROBABLE IV CONTAMINATION 26 - 34 PG MCHC PROBABLE IV CONTAMINATION 32.0 - 36.0 G/DL RDW PROBABLE IV CONTAMINATION 11 - 15 % Platelet Count PROBABLE IV CONTAMINATION 150 - 400 K/UL MPV PROBABLE IV CONTAMINATION 7 - 11 FL PROTIME INR (PT) Collection Time: 06/21/17 12:50 PM Result Value Ref Range INR PROBABLE IV CONTAMINATION 0.8 - 1.2 PTT (APTT) Collection Time: 06/21/17 12:50 PM Result Value Ref Range APTT PROBABLE IV CONTAMINATION 21.0 - 39.0 SEC THYROID STIMULATING HORMONE-TSH Collection Time: 06/21/17 2:00 PM Result Value Ref Range TSH 0.667 0.35 - 5.00 MCU/ML COMPREHENSIVE METABOLIC PANEL Collection Time: 06/21/17 2:00 PM Result Value Ref Range Sodium 139 137 - 147 MMOL/L Potassium 4.0 3.5 - 5.1 MMOL/L Chloride 112 (H) [...] - 12 eGFR Non >60 >60 mL/min eGFR >60 >60 mL/min CBC Collection Time: 06/21/17 2:00 PM Result Value Ref Range White Blood Cells 13.6 [...] K/UL MPV 9.3 7 - 11 FL PROTIME INR (PT) Collection Time: 06/21/17 2:00 PM Result Value Ref Range INR 1.0 0.8 - 1.2 PTT (APTT) Collection Time: 06/21/17 2:00 PM Result Value Ref Range APTT 22.9 21.0 - 39.0 SEC BETA-HCG Collection Time: 06/21/17 2:00 PM Result Value Ref Range Beta-HCG,Serum 2 <5 U/L BASIC METABOLIC PANEL Collection Time: 06/22/17 4:15 AM Result Value Ref Range Sodium 138 137 - [...] 10.6 MG/DL eGFR Non >60 >60 mL/min eGFR >60 >60 mL/min CBC AND DIFF Collection Time: 06/22/17 4:15 AM Result Value Ref Range White Blood Cells 12.8 [...] Basophil Count 0.00 0 - 0.20 K/UL IONIZED CALCIUM Collection Time: 06/22/17 4:15 AM Result Value Ref Range Ionized Calcium 1.11 1.0 - 1.3 MMOL/L MAGNESIUM Collection Time: 06/22/17 4:15 AM Result Value Ref Range Magnesium 2.0 1.6 - 2.6 mg/dL PHOSPHORUS Collection Time: 06/22/17 4:15 AM Result Value Ref Range Phosphorus 1.8 (L) 2.0 - 4.0 MG/DL Radiology and Other Diagnostic Procedures Review: Pertinent radiologic and diagnostic procedures reviewed. Raymond Ribeiro DO Date: 06/22/[phone] Associated attestation - Maira Hinds MD - 06/22/2017 11:22 AM CDT Formatting of this note may be different from the original. ATTESTATION I have seen, personally fully evaluated, and discussed patient with Dr. Ribeiro. I agree with the objective findings and agree with the plan of care as documented by the resident with the exceptions noted. The patient is critically ill with movements which were concerning for seizure. EEG show no epileptic activity with episodes. Discussed with patient that these are not epileptic - and daughter at bedside. Introduced concept that they could be related to anxiety or stress. Check further imaging to rule out other neurologic disorder. I spent 30 minutes (excluding time spent performing or supervising any procedures) providing and personally directing critical care services, including reviewing imaging and laboratory results. Staff name: Maira Hinds MD Date: 06/22/2017 * Missael Patel - 06/21/2017 5:55 PM CDT Patient had an event at 17:55, please see Doc Flowsheets for further details. * Meliza Leon - 06/21/2017 4:59 PM CDT Patient was hooked up to VEEG monitoring without difficulty. Both patient and family members received instructions on pressing the event button during all events/seizures. Questions asked and answered to patient's satisfaction. EEG signals are clean of artifact and visible. Electrode impedances below 5 k Ohms. Video was visualized and recording. Audio recording was checked and functioning. The VEEG system is on-line. Central monitoring station is functioning appropriately. The event button is operational and within reach of the patient and/or patient' s family. * Meliza Leon - 06/21/2017 4:59 PM CDT Routine 25 minute EEG performed at bedside without complications. * William Carrillo RN - 06/21/2017 1:00 PM CDT Patient arrived to room # (HC904) via cart accompanied by EMS. Patient transferred to the bed with assistance. Bedside safety checks completed. Initial patient assessment completed, refer to flowsheet for details. Admission skin assessment completed by: Pressure Injury Present: No 1. Occiput: No 2. Ear: No 3. Scapula: No 4. Spinous Process: No 5. Shoulder: No 6. Elbow: No 7. Iliac Crest: No 8. Sacrum/Coccyx: No 9. Ischial Tuberosity: No 10. Trochanter: No 11. Knee: No 12. Malleolus: No 13. Heel: No 14. Toes: No See Doc Flowsheet for additional wound details. INTERVENTIONS: in this encounter H&P Notes * Raymond Ribeiro DO - 06/21/2017 4:06 PM CDT Formatting of this note may be different from the original. Neuro Critical Care History and Physical Note Fernanda Villa Admission Date: 06/21/2017 LOS: 0 days Full Code ASSESSMENT/PLAN Patient Active Problem List Diagnosis Date Noted Seizures (HCC) 06/21/2017 Depression 06/21/2017 Anxiety 06/21/2017 Essential hypertension 06/21/2017 Fernanda Villa is a 46 y.o. female with history of anxiety, depression and hypertension who was transferred from [facility] to [facility] for video EEG monitoring of reported refractory seizures on 06/21. Hospital and ICU course: 06/21: Transferred from [facility] after intubation following third reported seizure. Neuro: Seizures - Patient's description inconsistent the generalized seizures - CT head with minimal pneumocephalus - Neuro-ICU monitoring, neurochecks q 1 hrs, parameters for Prevention of secondary brain injury(avoid hypotension, hypoxia, fever, hyperglycemia, significant anemia, diagnose and treatment of seizures, electrolyte abnormalities) - 24 hr video EEG - hold anti-epileptics to evaluate presence of seizures vs pseudoseizure - PRN ativan in event of seizure Sedation/Pain Management: n/a - intubated on presentation with propofol sedation, dc'd soon after arrival to NEICU Cardiac: Hypertension - SBP goal: 100-160 - MAP goal > 65 - resume GRAIN PICKER bistolic, triamterene/HCTZ, lasix as BP tolerates Respiratory: Date of Intubation: 06/21 at OSH Reason: Airway protection Date of Extubation: 06/21 at [facility] d/t pt likely not being post-ictal at time of admit - PaO2 goal >100, Spo2 goal >95% GI: - Feeding: regular diet - neurosurgery bowel regimen, ensure daily BM Heme: - assess for coagulopathy, maintain platelets above 100k, INR <1.5 ID: - aim for normothermia, Temp <38.3 celsius, normothermia protocol if febrile Renal: - Aim for normovolemia Endocrine: - Blood glucose goal 100-180mg/dl FEN: - IVF: n/a, pt able to eat and drink - Magnesium goal >2.0, i-Dariel goal > 1.0, Potassium goal >4.0 mEq/L Prophylaxis Review: A)GI: [id number] (pepcid) B) Lines: No C) Urinary Catheter: No D) Antibiotic Usage: No E) VTE: Pharmacological prophylaxis; Enoxaparin F) Isolation: n/a G)Seizures: video EEG, no pharmacologic suppression I) Restraints: Patient assessed for need for restraints. Disposition/Family: continue ICU admit tonight, family aware Primary service: Neuro Critical Care Consults: epileptology SUBJECTIVE Chief Complaint: Seizures History of Present Illness: Fernanda Villa is a 46 y.o. female with history of anxiety, depression and hypertension who was transferred from OSH to [facility] for video EEG monitoring of reported refractory seizures on 06/21. Pt noted initial seizure to have occurred ~16:30 on 06/20. She had received a cervical epidural injection about 3 hours prior and was told the initial placement was difficult leading to dural puncture. She noticed initial heaviness in b/l UE when she got home from work then became light-headed. This progressed to rapid shaking of upper and lower extremities. Ms Villa states she remembers the complete episode , but felt she could not stop herself. She also did not experience any post- ictal state, lose bowel/bladder fx, or bite her tongue. Her family in the room verified that identical presentations occurred again in the evening and this morning, however each of these were met with significant doses of IV lorazepam and diphenhydramine. Following reported episode this am she was intubated and sedated for transport. 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 She lives at home with her and 3 children. No limitations to her daily activity. She notes significantly increased stress at work on her first day back since surgery 1-2 wks prior (oophorectomy). Past Medical History: Diagnosis Date Anxiety Chronic low back pain Constipation Hypertension Rheumatoid arthritis (HCC) Past Surgical History: Procedure Laterality Date ADENOIDECTOMY APPENDECTOMY CHOLECYSTECTOMY HYSTERECTOMY TONSILLECTOMY Family history reviewed; non-contributory Social History Social History Narrative No narrative on file Code Status: Full Code Decision Maker: Patient, in event pt cannot make decisions Immunizations (includes history and patient reported): There is no immunization history on file for this patient. Allergies: Review of patient's allergies indicates no known allergies. GRAIN PICKER meds: - Bystolic - Lasix - Lorazepam - Venlafaxine - Triamterene/HCTZ - Estradiol Review of Systems: Review obtained from patient and family. Constitutional: positive for fatigue Eyes: negative Ears, nose, mouth, throat, and face: negative Respiratory: negative Cardiovascular: negative Gastrointestinal: positive for constipation Genitourinary:negative for bowel or bladder dysfunction Hematologic/lymphatic: positive for easy bruising and bleeding Musculoskeletal:positive for back pain Neurological: positive for seizures Behavioral/Psych: positive for anxiety OBJECTIVE Vital Signs: Last Filed Vital Signs: 24 Hour Range BP: 102/57 (06/21 1600) Temp: 36.7 C (98 F) (06/21 1600) Pulse: 73 (06/21 1600) Respirations: 12 PER MINUTE (06/21 1600) SpO2: 100 % (06/21 1600) O2 Delivery: Nasal Cannula (06/21 1600) Height: 165.1 cm (65") (06/21 1300) Weight: 69.5 kg (153 lb 3.5 oz) (10/04 1300) BP: (95-102)/(49-58) Temp: [36.7 C (98 F)-36.9 C (98.5 F)] Pulse: [70-84] Respirations: [12 PER MINUTE-15 PER MINUTE] SpO2: [99 %-100 %] O2 Delivery: Nasal Cannula Intensity Pain Scale 0-10 (Pain 1): (not recorded) Vitals: 06/21/17 1300 Weight: 69.5 kg (153 lb 3.5 oz) Lines: Peripheral Line Drains: None Intake/Output Summary: (Last 24 hours) Intake/Output Summary (Last 24 hours) at 06/21/17 1638 Last data filed at 06/21/17 1600 Gross per 24 hour Intake 0 ml Output 1215 ml Net -1215 ml Physical Exam: Blood pressure 102/57, pulse 73, temperature 36.7 C (98 F), height 165.1 cm (65"), weight 69.5 kg (153 lb 3.5 oz), SpO2 100 %. [place] coma score: E: 4 - Opens eyes on own M: 6 - Follows simple motor commands V: 5 - Alert and oriented Neuro: Mental Status: A&O x3 Cranial Nerves: Cranial nerves 2-12 INTACT by inspection. - EOM: intact Motor: RUE: Strength: 5/5 RLE: Strength: 5/5 LUE: Strength: 5/5 LLE: Strength: 5/5 Sensory: normal Lungs: clear to auscultation bilaterally Heart: regular rate and rhythm, S1, S2 normal, no murmur, click, rub or gallop Abdomen: soft, non-tender. Bowel sounds normal. No masses, no organomegaly Extremities: extremities normal, atraumatic, no cyanosis or edema Skin: Skin color, texture, turgor normal. No rashes or lesions Point of Care Testing: (Last 24 hours): Glucose: (!) 146 (06/21/17 1400) Lab Review: 24-hour labs: Results for orders placed or performed during the hospital encounter of (from the past 24 hour(s)) URINALYSIS DIPSTICK Collection Time: 06/21/17 12:45 PM Result Value Ref Range Color,UA STRAW Turbidity,UA CLEAR CLEAR-CLEAR Specific Wilbur-Urine 1.010 1.003 - 1.035 pH,UA 5.0 5.0 - 8.0 Protein,UA NEG NEG-NEG Glucose,UA NEG NEG-NEG Ketones,UA NEG NEG-NEG Bilirubin,UA NEG NEG-NEG Blood,UA 1+ (A) NEG-NEG Urobilinogen,UA NORMAL NORM-NORMAL Nitrite,UA NEG NEG-NEG Leukocytes,UA NEG NEG-NEG Urine Ascorbic Acid, UA NEG NEG-NEG URINALYSIS, MICROSCOPIC Collection Time: 06/21/17 12:45 PM Result Value Ref Range WBCs,UA 2-10 0 - 2 /HPF RBCs,UA 0-2 0 - 3 /HPF WBC Clumps PRESENT Squamous Epithelial Cells 0-2 0 - 5 COMPREHENSIVE METABOLIC PANEL Collection Time: 06/21/17 12:50 PM Result Value Ref Range Sodium PROBABLE IV CONTAMINATION 137 - 147 MMOL/L Potassium PROBABLE IV CONTAMINATION 3.5 - 5.1 MMOL/L Chloride PROBABLE IV CONTAMINATION 98 - 110 MMOL/L Glucose PROBABLE IV CONTAMINATION 70 - 100 MG/DL Blood Urea Nitrogen PROBABLE IV CONTAMINATION 7 - 25 MG/DL Creatinine PROBABLE IV CONTAMINATION 0.4 - 1.00 MG/DL Calcium PROBABLE IV CONTAMINATION 8.5 - 10.6 MG/DL Total Protein PROBABLE IV CONTAMINATION 6.0 - 8.0 G/DL Total Bilirubin PROBABLE IV CONTAMINATION 0.3 - 1.2 MG/DL Albumin PROBABLE IV CONTAMINATION 3.5 - 5.0 G/DL Alk Phosphatase PROBABLE IV CONTAMINATION 25 - 110 U/L AST (SGOT) PROBABLE IV CONTAMINATION 7 - 40 U/L CO2 PROBABLE IV CONTAMINATION 21 - 30 MMOL/L ALT (SGPT) PROBABLE IV CONTAMINATION 7 - 56 U/L Anion Gap 4 3 - 12 eGFR Non NOT CALCULATED >60 mL/min eGFR NOT CALCULATED >60 mL/min CBC Collection Time: 06/21/17 12:50 PM Result Value Ref Range White Blood Cells PROBABLE IV CONTAMINATION 4.5 - 11.0 K/UL RBC PROBABLE IV CONTAMINATION 4.0 - 5.0 M/UL Hemoglobin PROBABLE IV CONTAMINATION 12.0 - 15.0 GM/DL Hematocrit PROBABLE IV CONTAMINATION 36 - 45 % MCV PROBABLE IV CONTAMINATION 80 - 100 FL MCH PROBABLE IV CONTAMINATION 26 - 34 PG MCHC PROBABLE IV CONTAMINATION 32.0 - 36.0 G/DL RDW PROBABLE IV CONTAMINATION 11 - 15 % Platelet Count PROBABLE IV CONTAMINATION 150 - 400 K/UL MPV PROBABLE IV CONTAMINATION 7 - 11 FL PROTIME INR (PT) Collection Time: 06/21/17 12:50 PM Result Value Ref Range INR PROBABLE IV CONTAMINATION 0.8 - 1.2 PTT (APTT) Collection Time: 06/21/17 12:50 PM Result Value Ref Range APTT PROBABLE IV CONTAMINATION 21.0 - 39.0 SEC THYROID STIMULATING HORMONE-TSH Collection Time: 06/21/17 2:00 PM Result Value Ref Range TSH 0.667 0.35 - 5.00 MCU/ML COMPREHENSIVE METABOLIC PANEL Collection Time: 06/21/17 2:00 PM Result Value Ref Range Sodium 139 137 - 147 MMOL/L Potassium 4.0 3.5 - 5.1 MMOL/L Chloride 112 (H) [...] - 12 eGFR Non >60 >60 mL/min eGFR >60 >60 mL/min CBC Collection Time: 06/21/17 2:00 PM Result Value Ref Range White Blood Cells 13.6 [...] K/UL MPV 9.3 7 - 11 FL PROTIME INR (PT) Collection Time: 06/21/17 2:00 PM Result Value Ref Range INR 1.0 0.8 - 1.2 PTT (APTT) Collection Time: 10/04/17 2:00 PM Result Value Ref Range APTT 22.9 21.0 - 39.0 SEC Radiology and Other Diagnostic Procedures Review: Pertinent radiologic and diagnostic procedures reviewed. Ramyond Ribeiro DO Date: 06/21/[phone] Associated attestation - Maira Hinds MD - 06/22/2017 11:14 AM CDT Formatting of this note may be different from the original. ATTESTATION I have seen, personally fully evaluated, and discussed patient with Dr. Ribeiro. I agree with the objective findings and agree with the plan of care as documented by the resident with the exceptions noted. The patient is critically ill with possible seizures. I spent 40 minutes (excluding time spent performing or supervising any procedures) providing and personally directing critical care services, including reviewing imaging and laboratory results. Staff name: Maira Hinds MD Date: 06/22/2017 in this encounter Procedure Notes * Chelsea Gramajo MD - 06/22/2017 9:05 AM CDT Procedure(s): [place] LOCALIZE CEREBRAL SEIZURE CABLE/RADIO EEG/VIDEO VIDEO EEG REPORT Fernanda Villa 1970 [id number] Date of service: 06/21-06/22/2017 History: 46 y.o. female with seizure like episodes. Medications: no antiepileptics Introduction: This study was performed using digital electroencephalographic recording equipment. International 10-20 electrode placement was used along with FT9 and FT10 electrodes. The record was obtained with the patient in the awake and asleep state. Description: There is an alpha rhythm of 10 Hz with an amplitude of 20-25 uV measured in the referential montage. Anteriorly, there is low voltage beta activity. Drowsiness results in attenuation of the background and increased theta activity. Stage II of sleep results in symmetric sleep spindles, vertex waves, K complexes. Events: 5 events occurred (17:55, 18:38, 19:41, 20:54, 04:32). These involved shaking movements of body, sometimes just legs or head but often entire body. Eyes could be open or closed. EEG showed no epileptiform activity. Interpretation: This video EEG study is normal. The events captured had no EEG correlate. Clinical correlation: Episodes captured are not of epileptic etiology. Chelsea Gramajo MD 06/22/17 * Chelsea Gramajo MD - 06/21/2017 5:02 PM CDT Procedure(s): EEG AWAKE & ASLEEP EEG REPORT Fernanda Villa 1970 [id number] Date of service: 06/21/2017 History: 46 y.o. female with seizures. Medications: no antiepileptics Introduction: This study was performed using digital electroencephalographic recording equipment. International 10-20 electrode placement was used along with FT9 and FT10 electrodes. The record was obtained with the patient in the awake and asleep state as well as with photic stimulation and hyperventilation. Description: There is an alpha rhythm of 10 Hz with an amplitude of 20-25 uV measured in the referential montage. Anteriorly, there is low voltage beta activity. Drowsiness results in attenuation of the background and increased theta activity. Stage II of sleep results in symmetric sleep spindles, vertex waves, K complexes. Stepwise photic stimulation at a frequency of 3-30 Hz results in no driving response. Hyperventilation results in no change. Interpretation: This EEG in the awake and asleep states is normal. Video EEG monitoring is underway. Chelsea Gramajo MD 06/21/17 in this encounter Consult Notes * Janny Ramirez APRN-[employer] - 06/22/2017 3:23 PM CDT Associated Order(s): CONSULT SYSTEM CONSULTANT, [employer] Formatting of this note may be different from the original. Inpatient Psychiatric Clinical Nurse Specialist- Initial Consult Pt. Name: Fernanda Villa Room: 90/ LOS: 1 Reason for consult: PNES Interventions that would be helpful: I gave her the Guide to PNES treatment. Told patient and her to pursue a Psychiatry visit to oversee her anxiety /OCD tendencies. She is on 75 mg of effexor which her PCP gave her 3 months ago. I talked with them about the oversight of her meds for anxiety/depression being best in the hands of a Psychiatrist who can follow her over time. Also, she knows about rest and restorative yoga and [facility] on line classes to help her with stress management. This service is not able to enter orders. Primary team is responsible for entering orders. Summary MSE: Patient alert and Ox3. Speech fluid. Thoughts lucid and w/o evidence of psychoses. Memory grossly intact. Patient cooperative and with appropriate eye contact. She was tearful as we talked. She denies any significant trauma in her past. She never mentioned her recent jewel bearing facer surgery to me. 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 I think a combination of the stress of her surgery in the setting of a woman who tends to worry added to returning to her stressful job may have been the factors. Fide family: and 3 adult children. I think she will do well with Psychiatry support. She [facility] to go to [facility] that care. I appreciate being invited to participate in this patient's care. Call or page if there are any concerns or questions. Janny Ramirez [facility]- Pager [phone] Office [phone] in this encounter Miscellaneous Notes * Med Student Progress Note - Jai Beaulieu, MS - 06/22/2017 12:22 PM CDT Formatting of this note may be different from the original. Neuro Critical Care Progress Note Fernanda Villa Admission Date: 06/21/2017 LOS: 1 day Full Code ASSESSMENT/PLAN Patient Active Problem List Diagnosis Date Noted Seizures (HCC) 06/21/2017 Depression 06/21/2017 Anxiety 06/21/2017 Essential hypertension 06/21/2017 Ferannda Villa is a 46 y.o. female with history of anxiety, depression and hypertension who was transferred from OSH to [facility] for video EEG monitoring of reported refractory seizures on 06/21. Hospital and ICU course: 06/21: Transferred from [facility] after intubation following third reported seizure, extubated after arrival, started video EEG 06/22: EEG negative for epileptic activity with "convulsive" Neuro: Pseudoseizures - Patient's description inconsistent the generalized seizures - CT head with minimal pneumocephalus at OSH - Neuro-ICU monitoring, neurochecks q 1 hrs, parameters for Prevention of secondary brain injury(avoid hypotension, hypoxia, fever, hyperglycemia, significant anemia, diagnose and treatment of seizures, electrolyte abnormalities) - hold anti-epileptics as EEG has demonstrated no epileptic activity with spastic episodes - discontinue video EEG - Obtain new CT head w/o contrast to r/o additional process - transfer to floor status today, possibly discharge Depression/Anxiety - Discussed high likelihood of stress contributing to spastic episodes - Consult psych [employer] to assist with management of depressive and anxiety symptoms Sedation/Pain Management: n/a - intubated on presentation with propofol sedation, [facility] Cardiac: Hypertension - SBP goal: 100-160 - MAP goal > 65 - GRAIN PICKER nebivolol - Holding diuretics as BP has been stable Respiratory: Date of Intubation:06/21 at OSHReason: Airway protection Date of Extubation:06/21 at [facility] d/t pt likely not being post-ictal at time of admit - PaO2 goal >100, Spo2 goal >95% GI: - Feeding:regular diet -neurosurgery bowel regimen, ensure daily BM Heme: - assess for coagulopathy, maintain platelets above 100k, INR <1.5 ID: - aim for normothermia, Temp <38.3 celsius, normothermia protocol if febrile Renal: - Net I/O -1500/24hrs (she had received 2L crystalloid prior to transfer) - Aim for normovolemia Endocrine: - Blood glucose goal 100-180mg/dl - 111 on 06/22 FEN: - IVF:n/a, pt able to eat and drink - Magnesium goal >2.0, i-Dariel goal > 1.0, Potassium goal >4.0 mEq/L Prophylaxis Review: A)GI:[id number] (pepcid) B) Lines:No C) Urinary Catheter:No D) Antibiotic Usage:No E) VTE:Pharmacological prophylaxis; Enoxaparin F) Isolation:n/a G)Seizures:video EEG, no pharmacologic suppression I) Restraints: Patient assessed for need for restraints. Disposition/Family: downgrade to floor status, family aware Primary service:Neuro Critical Care Consults:epileptology SUBJECTIVE Fernanda Villa is a 46 y.o. female. Overnight Events: Significant event: Pt had seizure-like episode early AM, lasting around ten minutes. Pts family and nurse were at bedside. . Patient was seen in her room with , Gregor, and daughter. Pt states her neck is causing her pain and feels stiff, as well as noting a generalized soreness and a feeling of heaviness in her arms. Denies MOYA at this time. During rounds with attending physician, Dr. Hinds, pt experienced another seizure-like episode while still on EEG. The episode began with brief stiffness, wherein the pt told us she was starting another episode. While laying in bed, pts R shoulder began to shake anterior-posterior, which then generalized to the rest of her body including large amplitude hip thrusting. After 1-2 minutes of generalized shaking, the pt calmed down with continued R shoulder movement for an additional minute. Throughout the episode, the patients facial expression was tearful and obviously distraught, during which she made sobbing sounds and could respond and comply with her husbands request she squeeze his hand. Afterwards the pt was physically relaxed but tearful. Pt and family updated on plan to obtain CT and discussed the possibility of the role of anxiety in these episodes. Pt and family expressed understanding and agreed to the plan, no further questions at this time. OBJECTIVE Vital Signs: Last Filed Vital Signs: 24 Hour Range BP: 108/65 (06/22 1200) Temp: 36.9 C (98.5 F) (06/22 0800) Pulse: 57 (06/22 1200) Respirations: 13 PER MINUTE (06/22 1200) SpO2: 100 % (06/22 1200) O2 Delivery: None (Room Air) (06/22 1200) Height: 165.1 cm (65") (06/21 1300) Weight: 69.5 kg (153 lb 3.5 oz) (06/21 1300) BP: (95-125)/(49-86) Temp: [36.7 C (98 F)-36.9 C (98.5 F)] Pulse: [57-102] Respirations: [4 PER MINUTE-30 PER MINUTE] SpO2: [98 %-100 %] O2 Delivery: None (Room Air) Intensity Pain Scale 0-10 (Pain 1): (not recorded) Vitals: 06/21/17 1300 Weight: 69.5 kg (153 lb 3.5 oz) Artificial airway: None Ventilator/ Respiratory Therapy: No Vent weaning trial: Not applicable Lines: Peripheral Line Drains: None Critical Care Vitals: ICP Monitoring: Hemodynamics/Oxycalcs: Intake/Output Summary: (Last 24 hours) Intake/Output Summary (Last 24 hours) at 06/22/17 1222 Last data filed at 06/22/17 0900 Gross per 24 hour Intake 1273.75 ml Output 2305 ml Net -1031.25 ml Physical Exam: Blood pressure 108/65, pulse 57, temperature 36.9 C (98.5 F), height 165.1 cm (65"), weight 69.5 kg (153 lb 3.5 oz), SpO2 100 %. [place] coma score: E: 4 - Opens eyes on own M: 6 - Follows simple motor commands V: 5 - Alert and oriented Neuro: Mental Status: Awake, alert, oriented x3, cooperative, teary during some part of exam Cranial Nerves: Cranial nerves 2-12 INTACT. - Pupil exam: Size: 6mm bilaterally Reactivity: brisk bilaterally - EOM: Intact - Grimace/facial movement: present Motor: follows x4 RUE: Strength: 5/5; RLE: Strength: 5/5; LUE: Strength: 5/5; LLE: Strength: 5/5; Sensory: normal Coordination: Intact, UE and LE Lungs: clear to auscultation bilaterally Pulmonary: Stable on RA Heart: regular rate and rhythm, S1, S2 normal, no murmur, click, rub or gallop Abdomen: soft, non-tender. Bowel sounds normal. No masses, no organomegaly Extremities: extremities normal, atraumatic, no cyanosis or edema Point of Care Testing: (Last 24 hours) Glucose: (!) 111 (06/22/17 0415) Lab Review: 24-hour labs: Results for orders placed or performed during the hospital encounter of (from the past 24 hour(s)) URINALYSIS DIPSTICK Collection Time: 06/21/17 12:45 PM Result Value Ref Range Color,UA STRAW Turbidity,UA CLEAR CLEAR-CLEAR Specific Wilbur-Urine 1.010 1.003 - 1.035 pH,UA 5.0 5.0 - 8.0 Protein,UA NEG NEG-NEG Glucose,UA NEG NEG-NEG Ketones,UA NEG NEG-NEG Bilirubin,UA NEG NEG-NEG Blood,UA 1+ (A) NEG-NEG Urobilinogen,UA NORMAL NORM-NORMAL Nitrite,UA NEG NEG-NEG Leukocytes,UA NEG NEG-NEG Urine Ascorbic Acid, UA NEG NEG-NEG URINALYSIS, MICROSCOPIC Collection Time: 06/21/17 12:45 PM Result Value Ref Range WBCs,UA 2-10 0 - 2 /HPF RBCs,UA 0-2 0 - 3 /HPF WBC Clumps PRESENT Squamous Epithelial Cells 0-2 0 - 5 COMPREHENSIVE METABOLIC PANEL Collection Time: 06/21/17 12:50 PM Result Value Ref Range Sodium PROBABLE IV CONTAMINATION 137 - 147 MMOL/L Potassium PROBABLE IV CONTAMINATION 3.5 - 5.1 MMOL/L Chloride PROBABLE IV CONTAMINATION 98 - 110 MMOL/L Glucose PROBABLE IV CONTAMINATION 70 - 100 MG/DL Blood Urea Nitrogen PROBABLE IV CONTAMINATION 7 - 25 MG/DL Creatinine PROBABLE IV CONTAMINATION 0.4 - 1.00 MG/DL Calcium PROBABLE IV CONTAMINATION 8.5 - 10.6 MG/DL Total Protein PROBABLE IV CONTAMINATION 6.0 - 8.0 G/DL Total Bilirubin PROBABLE IV CONTAMINATION 0.3 - 1.2 MG/DL Albumin PROBABLE IV CONTAMINATION 3.5 - 5.0 G/DL Alk Phosphatase PROBABLE IV CONTAMINATION 25 - 110 U/L AST (SGOT) PROBABLE IV CONTAMINATION 7 - 40 U/L CO2 PROBABLE IV CONTAMINATION 21 - 30 MMOL/L ALT (SGPT) PROBABLE IV CONTAMINATION 7 - 56 U/L Anion Gap 4 3 - 12 eGFR Non NOT CALCULATED >60 mL/min eGFR NOT CALCULATED >60 mL/min CBC Collection Time: 06/21/17 12:50 PM Result Value Ref Range White Blood Cells PROBABLE IV CONTAMINATION 4.5 - 11.0 K/UL RBC PROBABLE IV CONTAMINATION 4.0 - 5.0 M/UL Hemoglobin PROBABLE IV CONTAMINATION 12.0 - 15.0 GM/DL Hematocrit PROBABLE IV CONTAMINATION 36 - 45 % MCV PROBABLE IV CONTAMINATION 80 - 100 FL MCH PROBABLE IV CONTAMINATION 26 - 34 PG MCHC PROBABLE IV CONTAMINATION 32.0 - 36.0 G/DL RDW PROBABLE IV CONTAMINATION 11 - 15 % Platelet Count PROBABLE IV CONTAMINATION 150 - 400 K/UL MPV PROBABLE IV CONTAMINATION 7 - 11 FL PROTIME INR (PT) Collection Time: 06/21/17 12:50 PM Result Value Ref Range INR PROBABLE IV CONTAMINATION 0.8 - 1.2 PTT (APTT) Collection Time: 06/21/17 12:50 PM Result Value Ref Range APTT PROBABLE IV CONTAMINATION 21.0 - 39.0 SEC THYROID STIMULATING HORMONE-TSH Collection Time: 06/21/17 2:00 PM Result Value Ref Range TSH 0.667 0.35 - 5.00 MCU/ML COMPREHENSIVE METABOLIC PANEL Collection Time: 06/21/17 2:00 PM Result Value Ref Range Sodium 139 137 - 147 MMOL/L Potassium 4.0 3.5 - 5.1 MMOL/L Chloride 112 (H) [...] - 12 eGFR Non >60 >60 mL/min eGFR >60 >60 mL/min CBC Collection Time: 06/21/17 2:00 PM Result Value Ref Range White Blood Cells 13.6 [...] K/UL MPV 9.3 7 - 11 FL PROTIME INR (PT) Collection Time: 06/21/17 2:00 PM Result Value Ref Range INR 1.0 0.8 - 1.2 PTT (APTT) Collection Time: 06/21/17 2:00 PM Result Value Ref Range APTT 22.9 21.0 - 39.0 SEC BETA-HCG Collection Time: 06/21/17 2:00 PM Result Value Ref Range Beta-HCG,Serum 2 <5 U/L BASIC METABOLIC PANEL Collection Time: 06/22/17 4:15 AM Result Value Ref Range Sodium 138 137 - [...] 10.6 MG/DL eGFR Non >60 >60 mL/min eGFR >60 >60 mL/min CBC AND DIFF Collection Time: 06/22/17 4:15 AM Result Value Ref Range White Blood Cells 12.8 [...] Basophil Count 0.00 0 - 0.20 K/UL IONIZED CALCIUM Collection Time: 06/22/17 4:15 AM Result Value Ref Range Ionized Calcium 1.11 1.0 - 1.3 MMOL/L MAGNESIUM Collection Time: 06/22/17 4:15 AM Result Value Ref Range Magnesium 2.0 1.6 - 2.6 mg/dL PHOSPHORUS Collection Time: 06/22/17 4:15 AM Result Value Ref Range Phosphorus 1.8 (L) 2.0 - 4.0 MG/DL Radiology and Other Diagnostic Procedures Review: Pertinent radiologic and diagnostic procedures reviewed. Jai Beaulieu MS Date: 06/22/[phone] * Case Mgmt DC Cindi Ellsworth RN - 06/22/2017 11:58 AM CDT Case Management Progress Note NAME:Fernanda Villa :1970 AGE: 46 y.o. ADMISSION DATE: 06/21/2017 DAYS ADMITTED: LOS: 1 day Todays Date: 06/22/2017 Plan Anticipate discharge home with family support once medically stable and workup complete. Interventions ? Support Support: Pt/Family Updates re:POC or DC Plan Reviewed EMR. Met with patient, and daughter Lorraine in room. Introduced self and explained NCM role. ? Info or Referral ? Discharge Planning ? Medication Needs ? Financial Financial: FMLA or STD Paperwork Provided with my email address to forward his FMLA paperwork. Same paperwork was printed. Section I handed to patient's , Mamadou, for completion. Section II handed to Dr. Raymond Ribeiro for completion. ? Legal ? Other Disposition ? Discharge Preparation Type of Residence: Private residence Patient expects to be discharged to: Private residence Was the patient receiving home care services?: No ? Expected Discharge Expected Discharge Date: 06/24/17 ? Discharge Disposition ? Next Level Care Cindi VALENTINO, RN, [facility] Integrated Nurse Transformation Coach Neurology Service Pager: [phone] * Case Mgmt DC Plan - Cindi Serrano RN - 06/22/2017 11:57 AM CDT Formatting of this note may be different from the original. Case Management Admission Assessment NAME:Fernanda Villa :1970 AGE: 46 y.o. ADMISSION DATE: 06/21/2017 DAYS ADMITTED: LOS: 1 day Todays Date: 06/22/2017 Source of Information: patient and [address] [facility] [id number] Problem 46 y.o. female with history of anxiety, depression and hypertension who was transferred from [facility] to [facility] for video EEG monitoring of reported refractory seizures on 06/21. Plan Plan: CM Assessment, Assist PRN with SW/NCM Services, Discharge Planning for Home Anticipated Emergency Contact Extended Emergency Contact Information Primary Emergency Contact: Mamadou Villa [facility] Relation: Spouse DPOA Yes. Copy not in system. She reports it names her Mamadou as DPOA. Transportation Does the patient need discharge transport arranged?: No Transportation Name, Phone and Availability #1: Mamadou Villa [phone] ( ) Expected Discharge Expected Discharge Date: 06/24/17 Living Situation Prior to Admission ? Living Arrangements Type of Residence: Home, independent (four steps with railing into house; bedroom and bathroom on the main level ) Living Arrangements: Spouse/significant other, Children (lives with and teen age daughter Lorraine) Bathroom Shower / Tub: Tub/Shower Unit, Walk-in Shower (patient uses the walk- in shower) Bathroom Toilet: Standard Can patient live on one level if needed?: Yes Support Systems: Spouse/Partner, Other family (, three kids and her father) Assistance Needed: No Home Care Services: No ? Level of Function Prior level of function: Independent (drives to work, ambulates without difficulty, performs ADLs unassisted) ? Cognitive Abilities Cognitive Abilities: Alert and Oriented, Engages in problem solving and planning , Participates in decision making, Recognizes impact of health condition on lifestyle, Understands nature of health condition Financial Resources ? Coverage Primary Insurance: Commercial insurance ([facility] Choice Plus) Additional Coverage: RX (Prescriptions filled through [facility], [facility] in [place] or [facility] in [place]) ? 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 Financial Assistance Needed? No Current/Previous Services ? PCP Irwin Mayers Iii Follows with his Ca Mayers APRN in same clinic. ? DME DME at home: None ? Home Health Receiving home health: No ? HD or PD Undergoing hemodialysis or peritoneal dialysis: No ? Tube/Enteral Feeds Receive tube/enteral feeds: No ? Infusion Receive infusions: No ? Private Duty Private duty help used: No ? HCBS Home and community based services: No ? Isaac Reagan: N/A ? Hospice Hospice: No ? Outpatient Therapy PT: In the past When did patient receive care?: < 1 year ago at [facility] Would patient return for future services?: Yes OT: No NEUROPSYCHIATRIC AIDE: No ? SNF/NH SNF: No NH: No ? IPR IPR: No ? LTACH LTACH: No ? Acute Hospital Stay Acute Hospital Stay: In the past Was patient's stay within the last 30 days?: No When did patient receive care?: April 08, 2016 (had two ribs removed) Name of hospital: [facility] Psychosocial Needs ? Mental Health Mental Health History: Yes (depression and anxiety; is on effexor for same; Psych [employer] consult placed while Inpatient at ) ? Substance History History Smoking Status Never Smoker Smokeless Tobacco Never Used History Alcohol Use Yes Comment: sporadic use History Drug Use No ? Abuse/Sexual Assault Have You Ever Been Hit, Hurt Or Threatened In Any Way In The Past 5 Years?: No Nurse Suspected Abuse?: No Cindi PANIAGAUN, RN, ACM Integrated Nurse Transformation Coach Neurology Service Pager: [phone] in this encounter Plan of Treatment Not on fileas of this encounter Results * CT HEAD WO CONTRAST (06/22/2017 12:37 PM) Specimen Performing Laboratory RAD RESULTS Impressions Normal CT scan of [...] Holm M.D. on 06/22/2017 12:44 PM. * PHOSPHORUS (06/22/2017 4:15 AM) Component Value Ref Range Phosphorus 1.8 (L) 2.0 - 4.0 MG/DL Specimen Performing Laboratory Blood MAIN LAB [address] [place] [id number] * MAGNESIUM (06/22/2017 4:15 AM) Component Value Ref Range Magnesium 2.0 1.6 - 2.6 mg/dL Specimen Performing Laboratory Blood MAIN LAB [address] [place] [address] 52298 * IONIZED CALCIUM (06/22/2017 4:15 AM) Component Value Ref Range Ionized Calcium 1.11 1.0 - 1.3 MMOL/L Specimen Performing Laboratory Blood MAIN LAB [address] [place] [address] 25858 * CBC AND DIFF (06/22/2017 4:15 AM) [...] - 0.20 K/UL Specimen Performing Laboratory Blood MAIN LAB [address] [place] [address]1578 * BASIC METABOLIC PANEL (06/22/2017 4:15 AM) [...] questions. Specimen Performing Laboratory Blood MAIN LAB [address] [place], [place] [id number] * BETA-HCG (06/21/2017 2:00 PM) Component Value Ref Range Beta-HCG,Serum 2 <5 U/L Specimen Performing Laboratory MAIN LAB [address] [place] [address]400 * PTT (APTT) (06/21/2017 2:00 PM) Component Value Ref Range APTT 22.9Comment: NOTE NEW REFERENCE RANGES 21.0 - 39.0 SEC Specimen Performing Laboratory MAIN LAB [address] [place] [address]29 * PROTIME INR (PT) (06/21/2017 2:00 PM) Component Value Ref Range INR 1.0 0.8 - 1.2 Specimen Performing Laboratory MAIN LAB [address] [place] [address] 37546 * CBC (06/21/2017 2:00 PM) Component Value Ref Range White Blood Cells [...] 7 - 11 FL Specimen Performing Laboratory MAIN LAB [address] [place] [address] * COMPREHENSIVE METABOLIC PANEL (06/21/2017 2:00 PM) Component Value Ref Range Sodium 139 137 [...] for questions. Specimen Performing Laboratory MAIN LAB [address] [place] [address]778 * THYROID STIMULATING HORMONE-TSH (06/21/2017 2:00 PM) Component Value Ref Range TSH 0.667 0.35 - 5.00 MCU/ML Specimen Performing Laboratory Blood MAIN LAB [address] [place] [address] 58763 * PTT (APTT) (06/21/2017 12:50 PM) Component Value Ref Range APTT PROBABLE IV CONTAMINATION 21.0 - 39.0 SEC Comment: APOLLO T/1400/MM Corrected on 06/21 AT 1405: previously reported as 24.7 NOTE NEW REFERENCE RANGES Specimen Performing Laboratory Blood MAIN LAB [address] [place] [address]9083 * PROTIME INR (PT) (06/21/2017 12:50 PM) Component Value Ref Range INR PROBABLE IV CONTAMINATION 0.8 - 1.2 Comment: APOLLO T/1400/MM Corrected on 06/21 AT 1405: previously reported as 1.1 Specimen Performing Laboratory Blood MAIN LAB [address] [place] [address] * CBC (06/21/2017 12:50 PM) Component Value Ref Range White Blood Cells PROBABLE IV CONTAMINATION 4.5 - 11.0 K/UL Comment: APOLLO T/1400/MM Corrected on 06/21 AT 1406: previously reported as 11.6 RBC PROBABLE IV CONTAMINATION 4.0 - 5.0 M/UL Comment: APOLLO T/1400/MM Corrected on 06/21 AT 1406: previously reported as 3.08 Hemoglobin PROBABLE IV CONTAMINATION 12.0 - 15.0 GM/DL Comment: APOLLO T/1400/MM Corrected on 06/21 AT 1406: previously reported as 9.7 Hematocrit PROBABLE IV CONTAMINATION 36 - 45 % Comment: APOLLO T/1400/MM Corrected on 06/21 AT 1406: previously reported as 27.6 MCV PROBABLE IV CONTAMINATION 80 - 100 FL Comment: APOLLO T/1400/MM Corrected on 06/21 AT 1406: previously reported as 89.7 MCH PROBABLE IV CONTAMINATION 26 - 34 PG Comment: APOLLO T/1400/MM Corrected on 06/21 AT 1406: previously reported as 31.3 MCHC PROBABLE IV CONTAMINATION 32.0 - 36.0 G/DL Comment: APOLLO T/1400/MM Corrected on 06/21 AT 1406: previously reported as 34.9 RDW PROBABLE IV CONTAMINATION 11 - 15 % Comment: APOLLO T/1400/MM Corrected on 06/21 AT 1406: previously reported as 13.7 Platelet Count PROBABLE IV CONTAMINATION 150 - 400 K/UL Comment: APOLLO T/1400/MM Corrected on 06/21 AT 1406: previously reported as 144 MPV PROBABLE IV CONTAMINATION 7 - 11 FL Comment: APOLLO T/1400/MM Corrected on 06/21 AT 1406: previously reported as 9.2 Specimen Performing Laboratory Blood MAIN LAB [address] [place] [address] * COMPREHENSIVE METABOLIC PANEL (06/21/2017 12:50 PM) Component Value Ref Range Sodium PROBABLE IV CONTAMINATION 137 - 147 MMOL/L Comment: APOLLO T/1400/MM Corrected on 06/21 AT 1404: previously reported as 140 Potassium PROBABLE IV CONTAMINATION 3.5 - 5.1 MMOL/L Comment: APOLLO T/1400/MM Corrected on 06/21 AT 1404: previously reported as 3.2 Chloride PROBABLE IV CONTAMINATION 98 - 110 MMOL/L Comment: APOLLO T/1400/MM Corrected on 06/21 AT 1404: previously reported as 117 Glucose PROBABLE IV CONTAMINATION 70 - 100 MG/DL Comment: APOLLO T/1400/MM Corrected on 06/21 AT 1404: previously reported as 121 Blood Urea Nitrogen PROBABLE IV CONTAMINATION 7 - 25 MG/DL Comment: APOLLO T/1400/MM Corrected on 06/21 AT 1404: previously reported as 14 Creatinine PROBABLE IV CONTAMINATION 0.4 - 1.00 MG/DL Comment: APOLLO T/1400/MM Corrected on 06/21 AT 1404: previously reported as 0.62 Calcium PROBABLE IV CONTAMINATION 8.5 - 10.6 MG/DL Comment: APOLLO T/1400/MM Corrected on 06/21 AT 1404: previously reported as 6.4 Total Protein PROBABLE IV CONTAMINATION 6.0 - 8.0 G/DL Comment: APOLLO T/1400/MM Corrected on 06/21 AT 1404: previously reported as 4.7 Total Bilirubin PROBABLE IV CONTAMINATION 0.3 - 1.2 MG/DL Comment: APOLLO T/1400/MM Corrected on 06/21 AT 1404: previously reported as 0.4 Albumin PROBABLE IV CONTAMINATION 3.5 - 5.0 G/DL Comment: APOLLO T/1400/MM Corrected on 06/21 AT 1404: previously reported as 2.6 Alk Phosphatase PROBABLE IV CONTAMINATION 25 - 110 U/L Comment: APOLLO T/1400/MM Corrected on 06/21 AT 1404: previously reported as 33 AST (SGOT) PROBABLE IV CONTAMINATION 7 - 40 U/L Comment: APOLLO T/1400/MM Corrected on 06/21 AT 1404: previously reported as 13 CO2 PROBABLE IV CONTAMINATION 21 - 30 MMOL/L Comment: APOLLO T/1400/MM Corrected on 06/21 AT 1404: previously reported as 19 ALT (SGPT) PROBABLE IV CONTAMINATION 7 - 56 U/L Comment: APOLLO T/1400/MM Corrected on 06/21 AT 1404: previously reported as 15 Anion Gap 4 3 - 12 eGFR Non NOT CALCULATED >60 mL/min Comment: APOLLO T/1400/MM The eGFR is not validated for use in drug dosing adjustments. Continue to use estimated creatinine clearance per dosing reference text. Please contact the Clinical Pharmacist for questions. Corrected on 06/21 AT 1404: previously reported as >60 The eGFR is not validated for use in drug dosing adjustments. Continue to use estimated creatinine clearance per dosing reference text. Please contact the Clinical Pharmacist for questions. eGFR NOT CALCULATED >60 mL/min Comment: APOLLO T/1400/MM The eGFR is not validated for use in drug dosing adjustments. Continue to use estimated creatinine clearance per dosing reference text. Please contact the Clinical Pharmacist for questions. Corrected on 06/21 AT 1404: previously reported as >60 The eGFR is not validated for use in drug dosing adjustments. Continue to use estimated creatinine clearance per dosing reference text. Please contact the Clinical Pharmacist for questions. Specimen Performing Laboratory Blood [facility]IN [facility] [address] [place] [address]39 * URINALYSIS, MICROSCOPIC (06/21/2017 12:45 PM) Component Value Ref Range WBCs,UA 2-10 0 - 2 /HPF RBCs,UA 0-2 0 - 3 /HPF WBC Clumps PRESENT Squamous Epithelial Cells 0-2 0 - 5 Specimen Performing Laboratory Urine MAIN LAB [address] [place] [address] 60458 * URINALYSIS DIPSTICK (06/21/2017 12:45 PM) Component Value Ref Range Color,UA STRAW Turbidity,UA CLEAR CLEAR-CLEAR Specific Wilbur-Urine 1.010 1.003 - 1.035 pH,UA 5.0 5.0 - 8.0 Protein,UA NEG NEG-NEG Glucose,UA NEG NEG-NEG Ketones,UA NEG NEG-NEG Bilirubin,UA NEG NEG-NEG Blood,UA 1+ (A) NEG-NEG Urobilinogen,UA NORMAL NORM-NORMAL Nitrite,UA NEG NEG-NEG Leukocytes,UA NEG NEG-NEG Urine Ascorbic Acid, UA NEG NEG-NEG Specimen Performing Laboratory Urine [facility] MAIN [facility] [address] [place] [address]19 * GENERAL RAD CHEST EXTERNAL IMAGING (06/21/2017 12:15 AM) Narrative This order has been auto finalized and does not contain a result. * GENERAL RAD CHEST EXTERNAL IMAGING (06/21/2017) Narrative This order has been auto finalized and does not contain a result. * CT HEAD EXTERNAL IMAGING (06/20/2017) Narrative This order has been auto finalized and does not contain a result. * MRI HEAD EXTERNAL IMAGING (07/29/2016) Narrative This order has been auto finalized and does not contain a result. in this encounter Visit Diagnoses Diagnosis Pseudoseizures - Primary Other convulsions Diagnosis unknown Other unknown and unspecified cause of morbidity or mortality Depression Depressive disorder, not elsewhere classified Anxiety Anxiety state, unspecified Essential hypertension Unspecified essential hypertension in this encounter Admitting Diagnoses Diagnosis New onset seizures Seizures (HCC) in this encounter Administered Medications Medication Order MAR Action Action Date Dose Rate Site acetaminophen (TYLENOL) tablet 650 mg Given 06/21/2017 650 mg 650 mg, Oral, EVERY 4 HOURS PRN, 22:51 CDT Starting Mon06/21/17 at 2248, Until Mon06/22/17 at 2058, Headache, Pain non-opioid: may be used alone or in combination with opioid analgesia, Temp > 38.5 C, Temp > ..., please notify provider if administered for temp, TOTAL ACETAMINOPHEN DOSE NOT TO EXCEED 4GM DAILY Given 06/22/2017 650 mg 09:06 CDT famotidine (PEPCID) tablet 20 mg Given 06/22/2017 20 mg 20 mg, Oral, DAILY, First dose on Mon 09:03 CDT 06/21/17 at 1430, Until Discontinued furosemide (LASIX) tablet 20 mg Given 06/22/2017 20 mg 20 mg, Oral, DAILY, First dose on Lissette 09:03 CDT 06/22/17 at 0900, Until Discontinued nebivolol (BYSTOLIC) tablet 10 mg Given 06/22/2017 10 mg 10 mg, Oral, DAILY, First dose on Lissette 09:03 CDT 06/22/17 at 0900, Until Discontinued, Hold for heart rate < 60 bpm, systolic BP < 100 or diastolic BP < 60 senna/docusate (SENOKOT-S) tablet 1 Given 06/22/2017 1 tablet tablet 09:03 CDT 1 tablet, Oral, TWICE DAILY, First dose on Mon06/21/17 at 1415, Until Discontinued, Hold for loose stools. If patient unable to take tablet, give 10 mL of senna/docusate (SENOKOT-S) solution. Send inAmarin message to pharmacy. sodium chloride 0.9 % infusion Given - New 06/21/2017 75 mL/hr 1,000 mL, Intravenous, at 75 mL/hr, Bag 13:21 CDT CONTINUOUS, Starting Mon06/21/17 at 1115, Until Mon06/21/17 at 1629 venlafaxine (EFFEXOR) tablet 75 mg Given 06/21/2017 75 mg 75 mg, Oral, AT BEDTIME DAILY, First 22:44 CDT dose on Mon06/21/17 at 2100, Until Discontinued in this encounter
[2017-06-23] MEDS ORDERED: LORazepam INJ 2 MG/ML (ATIVAN) VIAL IVP PRN (16:00)
--- NOTE | 2017-06-23 16:07 | History & Physical-Hospitalist ---
HPI History of Present Illness: HPI/Chief Complaint This is a 46yo CF with PMH of LINSEY, recent left oophorectomy and cervical spine epidural for chronic pain who presented to her PCP for hospital follow up for pseudoseizures at [facility]. She reports she had abd surgery 2 weeks ago for oophorectomy. She then had a cervical epidural on 06/[address] Johnston in [place]. That evening stated that she was feeling poorly at went to lay down. Her daughter found her at around 430pm staring in to space and alerted her . Her states she then began full body seizing. They brought her to the ER via ambulance. He states she seized for 90m before they were able to stop them. She denied any incontinence, tongue biting, or injury during seizure. She was admitted to the ICU here and had a recurrent seizure like event the next morning (06/21) and was ultimately transferred to [facility] for evaluation. She was admitted to the ICU at [facility] and had a CT head which per report was negative. She also had a 24 hour video EEG with witnessed seizure like activity on video but no EEG evidence of epileptiform activity. She was then diagnosed with pseudoseizures and discharged home on 06/22.. Her reports she multiple other seizures yesterday and this morning including 3 at her PCPs this afternoon which responded to Ativan. She reports knowing she is about to have a seizure and that she is aware of her surroundings throughout the episodes. She feels dizzy and jittery before the events start and has a headaches and feels her speech is slurred following them. Of note she was found to have a temperature of 100.1 at her PCP's office and blood work showed a leukocytosis of 14.35 (up from 12 2 days ago). She also complains of left abd pain and noticed her umbilical wound had opened from her surgery. A culture was obtained at the PCPs office. She reports BM this morning and having flatus. Lastly, normally takes Ativan at night but has been out since Monday and she takes tramadol for pain but has not taken any since her surgery as she has used the hydrocodone prescribed to her. Source: patient, family Exam Limitations: no limitations Date Seen 06/23/17 Time Seen by Provider: 15:15 Attending Physician Melissa Sy MD PCP Irwin Mayers DO Referring Physician Date of Admission Jun 23, 2017 at 15:05 Home Medications & Allergies Home Medications Reviewed patient Home Medication Reconciliation Form Allergies Allergies Coded Allergies No Known Drug Allergies (Unverified11/04/09) Past Yjocipg-Vorvcs-Jzdgnc Hx Patient Social History Marrital Status: Employed/Student: employed Recent Hopitalizations: No Immunizations Up To Date Date of Influenza Vaccine: Jun 08, 2017 Seasonal Allergies Seasonal Allergies: No Surgeries Yes (LASIK,WISDOM TEETH, left side 2 ribs removed, breast augmentation) Adenoidectomy, Appendectomy, Gallbladder, Hysterectomy, Oophorectomy, Tonsillectomy Respiratory No Cardiovascular Yes Hypertension Neurological No Reproductive System Hx Reproductive Disorders: Yes Sexually Transmitted Disease: No Genitourinary Kidney Infection Gastrointestinal Yes (bloating, difficulty moving bowels) Chronic Constipation Musculoskeletal Yes Rheumatoid Arthritis, Chronic Back Pain Endocrine History of Endocrine Disorders: No Cancer No Psychosocial History of Psychiatric Problem: Yes Behavioral Health Disorders: Pseudo Seizures, Anxiety Integumentary History of Skin or Integumenta: No Blood Transfusions History of Blood Disorders: No Family Medical History Family Hx: Hypertension 19 FATHER Review of Systems Constitutional: No chills, dizziness, No fever EENTM: blurred vision, double vision Respiratory: No cough, No short of breath Cardiovascular: No chest pain Gastrointestinal: abdominal pain (LLQ), No constipation, No diarrhea, No heartburn, No nausea, No vomiting Genitourinary: no symptoms reported Musculoskeletal: back pain, neck pain Psychiatric/Neurological: Anxiety, Headache, Denies Numbness, Seizure, Denies Tingling Physical Exam Physical Exam Vital Signs Capillary Refill : General Appearance: No Apparent Distress, WD/WN Neck: Normal Inspection, Non Tender, Supple, No Thyromegaly Respiratory: Lungs Clear, Normal Breath Sounds, No Accessory Muscle Use, No Respiratory Distress Cardiovascular: Regular Rate, Rhythm, No Edema, No JVD, No Murmur Gastrointestinal: Normal Bowel Sounds, Soft, Distended (slight), No Rebound, Tenderness (LLQ worst) Extremity: Normal Capillary Refill, Non Tender, No Calf Tenderness Neurologic/Psychiatric: Alert, Oriented x3, No Motor/Sensory Deficits, Normal Mood/Affect, cost coordinator II-XII Norm as Tested Skin: Normal Color, Warm/Dry, Other (surgical incision at umbilicus open, appears to track but do to patient tenderness and culture already being obtained did not explore) Assessment/Plan Admission Diagnosis Pseudoseizures Diagnosis/Problems Diagnosis/Problems (1) Pseudoseizures Status: Acute Assessment & Plan: Given recent epidural placement on day of initial seizure will get LP CT done at [facility] yesterday negative per report per report Video EEG done at [facility] diagnostic of psychogenic nonepileptic seizures Will monitor in ICU overnight Ativan available prn I think it is possible she may have had a seizure on initial presentation due to benzo withdrawal (off ativan over 2 days) and subsequent seizures are due to PNES consistent with video eeg (2) Abdominal pain Status: Acute Assessment & Plan: [place] for pain Will get CT Abd/Pelvis Start on Rocephin (will do 2g to cover possible CSF source) and Flagyl Case discussed with Dr. Hedrick, will place official consult Qualifiers: Qualified Codes: R10.32 - Left lower quadrant pain (3) Essential (primary) hypertension Status: Chronic Assessment & Plan: Continue home meds except lasix (4) Generalized anxiety disorder Assessment & Plan: Continue home effexor Continue QHS ativan (5) Prophylactic measure Assessment & Plan: SCDs (holding lovenox for LP) Saline Lock Reg Diet MELISSA SY MD Jun 23, 2017 16:07
[2017-06-23] MEDS ORDERED: CATHETER FLUSH 10 ML SYR IV PRN (16:15)
[2017-06-23] MEDS ORDERED: NS 100 ML (IVPB) BAG IV ONE (16:15)
[2017-06-23] MEDS ORDERED: IOHEXOL 350 MG/ML 100 ML (OMNIPAQUE 350) VIAL IV ONE (16:15)
[2017-06-23] MEDS ORDERED: cefTRIAXone INJECTION 2,000 MG in NS (IVPB) 50 ML IV SCH (16:45)
[2017-06-23] MEDS ORDERED: INFLUENZA TRIvalent 2017-2018 0.5 ML/45 MCG SYR IM ONE (17:45)
[2017-06-23 18:46] LABS: APPEARANCE,CSF CLEAR; COLOR,CSF COLORLESS; WHITE BLOOD CELL,CSF 0 CELLS (0-5)
[2017-06-23 18:47] LABS: CSF GLUCOSE 68 MG/DL (50-80); CSF TOTAL PROTEIN 39 MG/DL (15-40)
--- NOTE | 2017-06-23 18:48 | Diagnostic Imaging Report ---
PROCEDURE: CT abdomen and pelvis with contrast. TECHNIQUE: Multiple contiguous axial images were obtained through the abdomen and pelvis after administration of intravenous contrast. INDICATION: Postoperative abdominal pain; two weeks ago, she had a hysterectomy; patient came in on June 20 with seizures; [facility] found an infection from the hysterectomy. Now having abdominal pain on the left side, previous cholecystectomy and appendectomy. COMPARISON STUDY: CT scan dated 01/16/2017. FINDINGS: A small amount of fluid is present posteriorly in the pelvis. This may be from the recent surgery. This does not appear to be loculated. Sigmoid colon and adjacent small bowel loops demonstrate mild diffuse bowel wall thickening. No loculated fluid collections or free air are present. The incision sites appear to be well healed. Urinary bladder appears normal. The liver, spleen, pancreas, adrenal glands, and kidneys are normal. No obstruction is present. There are no hernias. The osseous structures appear normal. IMPRESSION: 1. There is a small amount of free fluid in the pelvis with no loculated fluid collections. This is probably due to the patient's recent operation. 2. There are some mildly thickened bowel loops in the pelvis, both small and large bowel loops. Findings are consistent with persistent inflammation. Dictated by: Dictated on workstation # [id number]
[2017-06-23] MEDS: HYDROcodone/APAP 5 MG/325 MG (LORTAB) TAB PO PRN (20:13)
[2017-06-23] MEDS: LORazepam 1 MG (ATIVAN) TAB PO PRN (21:15)
[2017-06-23] MEDS: metroNIDAZOLE 500MG/100ML IVPB 100 ML IV SCH (22:11)
--- NOTE | 2017-06-23 23:51 | Anesthesia-Procedure Note ---
Procedure Start/Stop Time Date of Procedure: Jun 23, 2017 Start Time: 16:35 Stop Time: 17:02 Procedures/Interventions Discussed Risk,Benefits: Yes Patient Consents: Yes Position: Lying, Left Sterile Technique: Yes Opening Pressure: 16.5 Fluid Color: Clear Spinal Needle Used: Other (25g pencan) Procedure Notes Spoke with patient about risk of lumbar puncture. Questions answered consent signed. Tolerated procedure well. CSF obtained after 1 redirect. Care to FITTER MACHINIST. Request to stay flat on back for 15 min. LYUDMILA SIMS CRNA Jun 23, 2017 23:51
[2017-06-24] VITALS (14 sets, daily range): BP systolic 108–156; BP diastolic 61–93
[2017-06-24 04:07] LABS: BASOPHILS % (AUTO) 0 % (0-10); EOSINOPHILS # (AUTO) 0.1 10^3/uL (0.0-0.3); EOSINOPHILS % (AUTO) 1 % (0-10); LYMPHOCYTES # (AUTO) 2.3 X 10^3 (1.0-4.0); LYMPHOCYTES % (AUTO) 17 % (12-44); MEAN CORPUSCULAR HEMOGLOBIN 31 PG (25-34); MEAN CORPUSCULAR HGB CONC 34 G/DL (32-36); MEAN CORPUSCULAR VOLUME 90 FL (80-99); MONOCYTES # (AUTO) 1.1 X 10^3 (0.0-1.0); MONOCYTES % (AUTO) 8 % (0-12); NEUTROPHILS # (AUTO) 9.7 X 10^3 (1.8-7.8); NEUTROPHILS % (AUTO) 74 % (42-75); PLATELET COUNT 219 10^3/uL (130-400); RED BLOOD COUNT 4.72 10^6/uL (4.35-5.85); RED CELL DISTRIBUTION WIDTH 12.7 % (10.0-14.5); WHITE BLOOD COUNT 13.2 10^3/uL (4.3-11.0)
[2017-06-24 04:29] LABS: MAGNESIUM 2.3 MG/DL (1.8-2.4)
[2017-06-24 04:31] LABS: ALANINE AMINOTRANSFERASE 28 U/L (0-55); ALBUMIN 3.7 GM/DL (3.2-4.5); ANION GAP 11 MMOL/L (5-14); ASPARTATE AMINO TRANSFERASE 20 U/L (5-34); BILIRUBIN,TOTAL 0.2 MG/DL (0.1-1.0); BLOOD UREA NITROGEN 17 MG/DL (7-18); BUN/CREATININE RATIO 20; CALCIUM 9.1 MG/DL (8.5-10.1); CARBON DIOXIDE 26 MMOL/L (21-32); CHLORIDE 102 MMOL/L (98-107); CREATININE SERUM 0.84 MG/DL (0.60-1.30); GFR ESTIMATED > 60; GLUCOSE 107 MG/DL (70-105); SODIUM 139 MMOL/L (135-145)
[2017-06-24] MEDS ORDERED: MAGNESIUM 1 GM/100 ML IVPB 100 ML IV SCH (06:00)
[2017-06-24] MEDS ORDERED: POTASSIUM CL 10MEQ/50ML IVPB 50 ML IV SCH (06:00)
[2017-06-24] MEDS ORDERED: KCL 20 MEQ TAB (K-DUR) PO SCH (06:00)
[2017-06-24] MEDS: metroNIDAZOLE 500MG/100ML IVPB 100 ML IV SCH ×3 (06:13→21:53)
[2017-06-24] MEDS: VENlafaxine XR 75 MG (EFFEXOR XR) CAP PO SCH (07:33)
[2017-06-24] MEDS: ACETAMINOPHEN 500 MG TAB (TYLENOL) PO PRN ×2 (08:00→17:52)
--- NOTE | 2017-06-24 08:46 | Progress Note-Hospitalist ---
Subjective HPI/CC On Admission Date Seen by Provider: Jun 24, 2017 Time Seen by Provider: 07:45 This is a 46yo CF with PMH of LINSEY, recent left oophorectomy and cervical spine epidural for chronic pain who presented to her PCP for hospital follow up for pseudoseizures at [facility]. She reports she had abd surgery 2 weeks ago for oophorectomy. She then had a cervical epidural on 06/[address] Johnston in [place]. That evening stated that she was feeling poorly at went to lay down. Her daughter found her at around 430pm staring in to space and alerted her . Her states she then began full body seizing. They brought her to the ER via ambulance. He states she seized for 90m before they were able to stop them. She denied any incontinence, tongue biting, or injury during seizure. She was admitted to the ICU here and had a recurrent seizure like event the next morning (06/21) and was ultimately transferred to [facility] for evaluation. She was admitted to the ICU at [facility] and had a CT head which per report was negative. She also had a 24 hour video EEG with witnessed seizure like activity on video but no EEG evidence of epileptiform activity. She was then diagnosed with pseudoseizures and discharged home on 06/22.. Her reports she multiple other seizures yesterday and this morning including 3 at her PCPs this afternoon which responded to Ativan. She reports knowing she is about to have a seizure and that she is aware of her surroundings throughout the episodes. She feels dizzy and jittery before the events start and has a headaches and feels her speech is slurred following them. Of note she was found to have a temperature of 100.1 at her PCP's office and blood work showed a leukocytosis of 14.35 (up from 12 2 days ago). She also complains of left abd pain and noticed her umbilical wound had opened from her surgery. A culture was obtained at the PCPs office. She reports BM this morning and having flatus. Lastly, normally takes Ativan at night but has been out since Monday and she takes tramadol for pain but has not taken any since her surgery as she has used the hydrocodone prescribed to her. Subjective/Events-last exam Pt reports having another "seizure" overnight. She states that when the loin puller came in to draw her blood it startled her and led to a "seizure." She reports that she was conscious through it all but her whole body was shaking. They did not alert nursing staff and just worked through it. The loin puller was in the room during this episode and stated she her leg and shoulder were shaking and she was taking to her throughout the episode and lasted for about 1.5 minutes. Objective Exam Vital Signs Vital Sign - Last 12Hours 06/23/17 06/23/17 15:00 17:38 Temp 98.0 Pulse 50 Resp 22 B/P (MAP) 136/85 Pulse Ox 100 O2 Delivery Room Air Capillary Refill : General Appearance: No Apparent Distress, WD/WN Respiratory: Lungs Clear, No Respiratory Distress Cardiovascular: Regular Rate, Rhythm, No Murmur Gastrointestinal: Normal Bowel Sounds, Non Tender, Soft Extremity: Non Tender, No Calf Tenderness Neurologic/Psychiatric: Alert, Oriented x3 Results/Procedures Lab Laboratory Tests 06/24/17 03:36 Assessment/Plan Assessment and Plan Assess & Plan/Chief Complaint Pseudoseizures Diagnosis/Problems Diagnosis/Problems (1) Pseudoseizures Status: Acute Assessment & Plan: CSF cytology reassuring, gram stain negative, will await culture per report Video EEG done at [facility] diagnostic of psychogenic nonepileptic seizures Will transfer to floor Ativan available prn I think it is possible she may have had a seizure on initial presentation due to benzo withdrawal (off ativan over 2 days) and subsequent seizures are due to PNES consistent with video eeg Possibly consistent with conversion disorder as well I discussed with patient that these were not seizures and were her body's response to stress, she seemed to understand, advised to call nursing or have call if recurrent seizure like activity (2) Abdominal pain Status: Acute Assessment & Plan: [place] for pain CT Abd/Pelvis negative for acute pathology Cont on Rocephin and Flagyl Dr Hedrick consulted, appreciate recs Qualifiers: Qualified Codes: R10.32 - Left lower quadrant pain (3) Essential (primary) hypertension Status: Chronic Assessment & Plan: Continue home meds except lasix (4) Generalized anxiety disorder Assessment & Plan: Continue home effexor Continue QHS ativan (5) Prophylactic measure Assessment & Plan: SCDs (holding lovenox for LP) Saline Lock Reg Diet MELISSA FONSECA MD Jun 24, 2017 08:46
--- NOTE | 2017-06-24 08:59 | Diagnostic Imaging Report ---
INDICATION: Dyspnea. Comparison made with prior examination from 06/21/17 Findings: The ET and NG tubes have been removed. The heart size is normal. Mediastinum is unremarkable. There is no pleural effusion, pneumothorax or pneumonia. IMPRESSION: No acute cardiopulmonary abnormality. Dictated by: Dictated on workstation # [id number]
[2017-06-24] MEDS ORDERED: cefTRIAXone INJECTION 1,000 MG in NS (IVPB) 50 ML IV SCH (09:00)
[2017-06-24] MEDS: NEBIVOLOL 5 MG TAB (BYSTOLIC) PO SCH (09:20)
[2017-06-24] MEDS: TRIAMTERENE/HCTZ 75-50 (MAXZIDE,DYAZIDE) TABLET PO SCH (09:21)
[2017-06-24] MEDS: HYDROcodone/APAP 5 MG/325 MG (LORTAB) TAB PO PRN (11:56)
--- NOTE | 2017-06-24 16:42 | Consultation ---
History of Present Illness History of Present Illness Patient Consulted On(berto/time) 06/24/17 16:37 Reason for Visit: seizure type activity/febrile History of Present Illness I was consulted due to recent history of laparoscopy and left oophorectomy, adhesiolysis on 06/09/17. Her laparoscopy was uncomplicated. She was to have seen me for post op visit on Monday06/21/17 but did not make her appointment as she was hospitalized due to seizure like activity on 06/20/17. She had had an epidural injection by Dr. Johnston on the same day in the cervical spine. She reportedly had seizure like activity several hours later and presented to the hospital. CT head was negative. CT neck showed some air in the epidural space but this was not unexpected due to the recent injection. She was transferred to [facility] for video EEG monitoring. She was discharged to home on 06/22/17 and Her umbilical incision has reportedly come open. It was cultured at [facility]'s office due to concern for infection. Patient reportedly had an elevated temp in her office of 100.1 and WBC of 13.6. There is not reported drainage nor redness. CT abdomen pelvis shows no acute findings. Small amount of pelvic fluid and some inflammation which is likely postoperative. Allergies and Home Medications Allergies Coded Allergies: No Known Drug Allergies (Unverified , 11/04/09) Home Medications Estradiol 1 Each Patch.tdsw, 1 EACH TD Twice weekly, (Reported) Furosemide 20 Mg Tablet, 20 MG PO DAILY, (Reported) Hydrocodone/Acetaminophen 1 Each Tablet, 1 EACH PO Q6H, #30 Prescribed by: WANG SCHROEDER on 06/09/17 1536 Lorazepam 2 Mg Tablet, 2 MG PO HS, (Reported) Nebivolol HCl 10 Mg Tab, 10 MG PO DAILY, (Reported) Triamterene/Hydrochlorothiazid 1 Each Tablet, 1 EACH PO DAILY, (Reported) Venlafaxine HCl 75 Mg Tab, 75 MG PO HS, (Reported) Past Bnuzyxv-Ntkslq-Mrqcml Hx Patient Social History Alcohol Use: Denies Use Recreational Drug Use: No Smoking Status: Never a Smoker Recent Foreign Travel: No Contact w/Someone Who Travel: No Recent Infectious Disease Expo: No Recent Hopitalizations: No Immunizations Up To Date Date of Influenza Vaccine: Jun 08, 2017 Seasonal Allergies Seasonal Allergies: No Surgeries History of Surgeries: Yes (LASIK,WISDOM TEETH, left side 2 ribs removed, breast augmentation) Surgeries: Adenoidectomy, Appendectomy, Gallbladder, Hysterectomy, Oophorectomy , Tonsillectomy Respiratory History of Respiratory Disorde: No Cardiovascular History of Cardiac Disorders: Yes Cardiac Disorders: Hypertension Neurological History of Neurological Disord: No Reproductive System : No Hx Reproductive Disorders: Yes Sexually Transmitted Disease: No Genitourinary History of Genitourinary Disor: No Genitourinary Disorders: Kidney Infection Gastrointestinal History of Gastrointestinal Di: Yes (bloating, difficulty moving bowels) Gastrointestinal Disorders: Chronic Constipation Musculoskeletal History of Musculoskeletal Dis: Yes Musculoskeletal Disorders: Rheumatoid Arthritis, Chronic Back Pain Endocrine History of Endocrine Disorders: No HEENT History of HEENT Disorders: No Cancer History of Cancer: No Psychosocial History of Psychiatric Problem: Yes Behavioral Health Disorders: Pseudo Seizures, Anxiety Integumentary History of Skin or Integumenta: No Blood Transfusions History of Blood Disorders: No Family Medical History Family Medial History: FH: CHF (congestive heart failure) 19 MOTHER FH: COPD (chronic obstructive pulmonary disease) 19 MOTHER Hypercholesterolemia 19 MOTHER Hypertension 19 FATHER 19 MOTHER G8 BROTHER Physical Exam-General Problems Physical Exam Vital Signs Vital Sign - Last 12Hours 06/23/17 06/23/17 15:00 17:38 Temp 98.0 Pulse 50 Resp 22 B/P (MAP) 136/85 Pulse Ox 100 O2 Delivery Room Air Capillary Refill : Clinical Quality Measures DVT/VTE Risk/Contraindication: Risk Factor Score Per Nursin RFS Level Per Nursing on Admit: 1=Low/No VTE PPX WANG SCHROEDER DO Jun 24, 2017 16:42
[2017-06-24] MEDS ORDERED: cefTRIAXone 1 GM/NS 50 ML IVPB IV SCH ×2 (17:00)
[2017-06-24] MEDS ORDERED: INFLUENZA TRIvalent 2017-2018 0.5 ML/45 MCG SYR IM ONE (17:50)
[2017-06-24] MEDS: LORazepam 1 MG (ATIVAN) TAB PO PRN (21:53)
[2017-06-25 04:20] VITALS: BP 123/73
[2017-06-25 05:15] LABS: BASOPHILS % (AUTO) 0 % (0-10); EOSINOPHILS # (AUTO) 0.1 10^3/uL (0.0-0.3); EOSINOPHILS % (AUTO) 1 % (0-10); LYMPHOCYTES % (AUTO) 18 % (12-44); MEAN CORPUSCULAR HEMOGLOBIN 31 PG (25-34); MEAN CORPUSCULAR HGB CONC 34 G/DL (32-36); MEAN CORPUSCULAR VOLUME 89 FL (80-99); MEAN PLATELET VOLUME 10.6 FL (7.4-10.4); MONOCYTES # (AUTO) 1.1 X 10^3 (0.0-1.0); MONOCYTES % (AUTO) 9 % (0-12); NEUTROPHILS # (AUTO) 8.1 X 10^3 (1.8-7.8); NEUTROPHILS % (AUTO) 72 % (42-75); PLATELET COUNT 243 10^3/uL (130-400); RED BLOOD COUNT 5.11 10^6/uL (4.35-5.85); RED CELL DISTRIBUTION WIDTH 12.9 % (10.0-14.5); WHITE BLOOD COUNT 11.4 10^3/uL (4.3-11.0)
[2017-06-25] MEDS: VENlafaxine XR 75 MG (EFFEXOR XR) CAP PO SCH (05:48)
[2017-06-25] MEDS: metroNIDAZOLE 500MG/100ML IVPB 100 ML IV SCH (05:48)
[2017-06-25 06:05] LABS: ANION GAP 11 MMOL/L (5-14); BLOOD UREA NITROGEN 13 MG/DL (7-18); BUN/CREATININE RATIO 13; CALCIUM 9.6 MG/DL (8.5-10.1); CARBON DIOXIDE 28 MMOL/L (21-32); CHLORIDE 102 MMOL/L (98-107); CREATININE SERUM 0.99 MG/DL (0.60-1.30); GFR ESTIMATED > 60; GLUCOSE 101 MG/DL (70-105); SODIUM 141 MMOL/L (135-145)
[2017-06-25] MEDS: TRIAMTERENE/HCTZ 75-50 (MAXZIDE,DYAZIDE) TABLET PO SCH (09:08)
[2017-06-25] MEDS: NEBIVOLOL 5 MG TAB (BYSTOLIC) PO SCH (09:08)
--- NOTE | 2017-06-25 09:08 | Discharge Summary-Hospitalist ---
Diagnosis/Chief Complaint Date of Admission Jun 23, 2017 at 15:05 Date of Discharge Discharge Date: Jun 25, 2017 Admission Diagnosis Pseudoseizures Discharge Diagnosis Pseudoseizures (1) Pseudoseizures Status: Acute Assessment & Plan: CSF cytology reassuring, gram stain negative, culture negative per report Video EEG done at [facility] diagnostic of psychogenic nonepileptic seizures Ativan available prn I think it is possible she may have had a seizure on initial presentation due to benzo withdrawal (off ativan over 2 days) and subsequent seizures are due to PNES consistent with video eeg Possibly consistent with conversion disorder as well I discussed with patient that these were not seizures and were her body's response to stress, she seemed to understand, advised to call nursing or have call if recurrent seizure like activity (2) Abdominal pain Status: Acute Assessment & Plan: [place] for pain CT Abd/Pelvis negative for acute pathology Will complete 7 day course of abx, add probiotic as well Cipro and Flagyl Dr Schroeder consulted, appreciate recs (3) Essential (primary) hypertension Status: Chronic Assessment & Plan: Continue home meds except lasix (4) Generalized anxiety disorder Assessment & Plan: Continue home effexor Continue QHS ativan (5) Prophylactic measure Assessment & Plan: SCDs (holding lovenox for LP) Saline Lock Reg Diet Discharge Summary Consultations OB-QA SPECIALIST- Dr Schroeder Discharge Physical Examination Allergies: Coded Allergies: No Known Drug Allergies (Unverified , 11/04/09) Vitals & I&Os Vital Signs Date Time Temp Pulse Resp B/P (MAP) Pulse Ox O2 Delivery O2 Flow Rate FiO2 06/25/17 10:30 06/25/17 09:15 Room Air 06/25/17 04:20 98.0 66 16 97 Hospital Course Pt admitted from clinic with concerns for encephalitis given seizures in office , temperature of 100.1, and recent cervical epidural. Video EEG done at [facility] 1 day prior to admission was diagnostic of pseudoseizures. LP was performed and gram stain and culture negative, cell counts WNL. CT Abd/Pelv were done because of concerns about opening of abd wound from recent oophorectomy and was negative. She was treated with abx for possible intrabdominal infection given fever, abd pain, and distention. Will complete 7 day course of abx as outpatient. Discussed that pseudoseizures do not originate from brain activity and no need for antiepileptic medicines. Discussed return precautions for prolonged seizure like activity or if they felt she was getting worse. Advised to obtain appt with Dr. Mayers this week to follow up hospital stay and with Dr. Schroeder next week for post op follow up. Labs (last 24 hrs) Laboratory Tests 06/25/17 04:56: White Blood Count 11.4H, Red Blood Count 5.11, Hemoglobin 15.7, Hematocrit 46, Mean Corpuscular Volume 89, Mean Corpuscular Hemoglobin 31, Mean Corpuscular Hemoglobin Concent 34, Red Cell Distribution Width 12.9, Platelet Count 243, Mean Platelet Volume 10.6H, Neutrophils (%) (Auto) 72, Lymphocytes (%) (Auto) 18 , Monocytes (%) (Auto) 9, Eosinophils (%) (Auto) 1, Basophils (%) (Auto) 0, Neutrophils # (Auto) 8.1H, Lymphocytes # (Auto) 2.0, Monocytes # (Auto) 1.1H, Eosinophils # (Auto) 0.1, Basophils # (Auto) 0.0, Sodium Level 141, Potassium Level 4.0, Chloride Level 102, Carbon Dioxide Level 28, Anion Gap 11, Blood Urea Nitrogen 13, Creatinine 0.99, Estimat Glomerular Filtration Rate > 60, BUN/ Creatinine Ratio 13, Glucose Level 101, Calcium Level 9.6 Microbiology 06/23/17 Gram Stain - Final, Resulted 06/23/17 CSF Culture - Preliminary, Resulted No growth Pending Labs Laboratory Tests 06/25/17 04:56: White Blood Count 11.4, Red Blood Count 5.11, Hemoglobin 15.7, Hematocrit 46, Mean Corpuscular Volume 89, Mean Corpuscular Hemoglobin 31, Mean Corpuscular Hemoglobin Concent 34, Red Cell Distribution Width 12.9, Platelet Count 243, Mean Platelet Volume 10.6, Neutrophils (%) (Auto) 72, Lymphocytes (%) (Auto) 18 , Monocytes (%) (Auto) 9, Eosinophils (%) (Auto) 1, Basophils (%) (Auto) 0, Neutrophils # (Auto) 8.1, Lymphocytes # (Auto) 2.0, Monocytes # (Auto) 1.1, Eosinophils # (Auto) 0.1, Basophils # (Auto) 0.0, Sodium Level 141, Potassium Level 4.0, Chloride Level 102, Carbon Dioxide Level 28, Anion Gap 11, Blood Urea Nitrogen 13, Creatinine 0.99, Estimat Glomerular Filtration Rate > 60, BUN/ Creatinine Ratio 13, Glucose Level 101, Calcium Level 9.6 Discharge Home Medications: Active Scripts Active Probiotic Acidophilus (Lactobacillus Acidophilus) 1 Each Tablet 1 Each PO BID 7 Days Flagyl (Metronidazole) 500 Mg Tablet 500 Mg PO Q8H 4 Days Cipro (Ciprofloxacin HCl) 500 Mg Tablet 500 Mg PO BID 4 Days [place] 5-325 Tablet (Hydrocodone/Acetaminophen) 1 Each Tablet 1 Each PO Q6H Reported Furosemide 20 Mg Tablet 20 Mg PO DAILY Estradiol Patch Twice Weekly 0.025mg/hr (Estradiol) 1 Each Patch.tdsw 1 Each TD TWICE WEEKLY Triamterene-Hctz 37.5-25 mg Tb (Triamterene/Hydrochlorothiazid) 1 Each Tablet 1 Each PO DAILY Venlafaxine HCl 75 Mg Tab 75 Mg PO HS Lorazepam 2 Mg Tablet 2 Mg PO HS Bystolic (Nebivolol HCl) 10 Mg Tab 10 Mg PO DAILY Instructions to patient/family Please see electronic discharge instructions given to patient. Clinical Quality Measures DVT/VTE Risk/Contraindication: Risk Factor Score Per Nursin RFS Level Per Nursing on Admit: 1=Low/No VTE PPX Copy Copies To 1: WANG SCHROEDER DO; MARCIE MAYERS DO Problem Qualifiers (1) Abdominal pain: Abdominal location: left lower quadrant Qualified Codes: R10.32 - Left lower quadrant pain MELISSA FONSECA MD Jun 25, 2017 09:08
[2017-06-25] MEDS ORDERED: CIPR-225 PO ×2 (09:12)
[2017-06-25] MEDS ORDERED: LACT1TAB25 PO ×2 (09:12)
[2017-06-25] MEDS ORDERED: METR500T PO ×2 (09:12)
--- NOTE | 2017-06-25 09:52 | Diagnostic Imaging Report ---
INDICATION: Dyspnea. COMPARISON: Comparison made with prior examination 06/24/2017. FINDINGS: The heart size is normal. The mediastinum is unremarkable. There is no pleural effusion, pneumothorax or pneumonia. IMPRESSION: No acute cardiopulmonary abnormality. Dictated by: Dictated on workstation # [id number]
== END 2017-06-25 10:40 | disposition home or self-care (01) | DRG 880 ==
LOC: ICU 15:05 → 4TH 06-24 10:26
PROVIDERS: ADMIT Family Medicine; ATTEND Family Medicine
PROC: 009U3ZX Drainage of Spinal Canal, Percutaneous Approach, Diagnostic (ICD-10-PCS; principal; 2017-06-23)
DX: F44.4 Conversion disorder with motor symptom or deficit (principal); R10.32 Left lower quadrant pain; I10 Essential (primary) hypertension; F41.1 Generalized anxiety disorder
CPT/HCPCS: 36415; 71010; 74177; 80048; 80053; 82945; 83735; 84100; 84157; 85025; 87070; 87205; 89051

== ENCOUNTER → 2017-06-23 | Outpatient (CLI) | payer OTHER ==
[~2017-06-23] MED LIST changes: +CIPR-225 PO; +LACT1TAB25 PO; +METR500T PO
== END ==
LOC: LABNPT 08:00
PROVIDERS: ATTEND Nurse Practitioner Family
DX: R50.9 Fever, unspecified (principal); K43.2 Incisional hernia without obstruction or gangrene
CPT/HCPCS: 87070; 87077; 87186; 87205

== ENCOUNTER → 2017-06-26 | Outpatient (CLI) | payer OTHER ==
[~2017-06-26] MED LIST changes: +CIPR-225 PO; +LACT1TAB25 PO; +METR500T PO
[2017-06-26 15:49] LABS: MEAN PLATELET VOLUME 10.3 FL (7.4-10.4); RED BLOOD COUNT 5.27 10^6/uL (4.35-5.85); RED CELL DISTRIBUTION WIDTH 12.7 % (10.0-14.5); WHITE BLOOD COUNT 11.6 10^3/uL (4.3-11.0)
--- NOTE | 2017-06-26 15:50 | Diagnostic Imaging Report ---
Indication: Abdominal pain Findings: Bowel gas pattern is normal. Lung bases are clear. There is no intraperitoneal free air. There are no pathologic masses or calcifications. Impression: Negative abdomen. Dictated by: Dictated on workstation # [id number]
== END ==
LOC: RAD 15:22
PROVIDERS: ATTEND Internal Medicine
DX: R10.84 Generalized abdominal pain (principal)
CPT/HCPCS: 36415; 74020; 85027; 86141

== ENCOUNTER 2018-02-06 16:21 | Outpatient (CLI) | payer OTHER | END 2018-02-06 16:29 | disposition home or self-care (01) | LOC: SLEEP 16:21 | PROVIDERS: ATTEND Nurse Practitioner Family | DX: G47.10 Hypersomnia, unspecified (principal); G47.61 Periodic limb movement disorder; R06.83 Snoring ==

== ENCOUNTER → 2018-07-13 | Outpatient (CLI) | payer OTHER ==
[~2018-07-13] MED LIST changes: +HYDR-4226 PO; -HYDR-757 PO
--- NOTE | 2018-07-13 10:05 | Diagnostic Imaging Report ---
PROCEDURE: MR imaging cervical spine without contrast. TECHNIQUE: Multiplanar, multisequence MR imaging of the cervical spine was performed without contrast. INDICATION: Chronic neck pain and bilateral arm pain and paresthesia. There is mild straightening of normal cervical lordosis. Vertebral body heights and disc spaces are maintained. There is no evidence of focal disc protrusion. Small focus of increased T2 signal seen along the posterior margin of the C5-C6 and disc space which may represent small annular tear. There is normal signal intensity within the cervical spinal cord. Bone marrow signal intensities are unremarkable. IMPRESSION: There may be small annular tear involving posterior C5-C6 disc without significant protrusion or stenosis. Cervical spine MRI is otherwise unremarkable. Dictated by: Dictated on workstation # [id number]
== END ==
LOC: RAD 09:14
PROVIDERS: ATTEND Pain Medicine Interventional Pain Medicine
DX: M50.10 Cervical disc disorder with radiculopathy, unspecified cervical region (principal); R20.2 Paresthesia of skin; M79.601 Pain in right arm; M79.602 Pain in left arm
CPT/HCPCS: 72141

== ENCOUNTER → 2018-08-20 | Outpatient (CLI) | payer OTHER ==
--- NOTE | 2018-08-20 07:45 | Diagnostic Imaging Report ---
PROCEDURE: MRI lumbar spine. TECHNIQUE: Multiplanar, multisequence MRI of the lumbar spine was performed without contrast. INDICATION: Chronic low back pain Comparison is made to study of 12/12/2014. Lumbar spinal curvature and alignment are unremarkable. Conus medullaris has a normal appearance at the T12-L1 level. There is mild annular bulging of the L4-5 disc with small left paramedian protrusion which results in minimal left lateral recess stenosis. No marrow signal abnormality is seen to indicate a fracture. IMPRESSION: Mild left lateral recess stenosis at L4-5 is stable or mildly improved compared to previous study. Otherwise no acute abnormality or adverse change is detected. Dictated by: Dictated on workstation # [id number]
== END ==
LOC: RAD 06:47
PROVIDERS: ATTEND Pain Medicine Interventional Pain Medicine
DX: M48.061 Spinal stenosis, lumbar region without neurogenic claudication (principal)
CPT/HCPCS: 72148

== ENCOUNTER 2019-04-17 13:06 | Outpatient (CLI) | payer OTHER ==
[~2019-04-17] VITALS: Ht 165.1 cm; Wt 63.5 kg
[2019-04-17 13:10] VITALS: BP 130/84
[2019-04-17] MEDS ORDERED: cefTRIAXone 1,000 MG/SWFI 10 ML IV PUSH IV ONE ×2 (13:30)
[2019-04-17] MEDS ORDERED: ONDANSETRON 4 MG/2 ML (SDV) Z0FRAN IV PRN (13:30)
[2019-04-17] MEDS: LACTATED RINGERS 1,000 ML IV SCH ×2 (13:35→15:00)
[2019-04-17 13:40] LABS: MEAN PLATELET VOLUME 10.3 FL (7.4-10.4); RED CELL DISTRIBUTION WIDTH 14.6 % (10.0-14.5); WHITE BLOOD COUNT 7.2 10^3/uL (4.3-11.0)
[2019-04-17 13:49] LABS: ALBUMIN 4.4 GM/DL (3.2-4.5); BILIRUBIN,TOTAL 0.7 MG/DL (0.1-1.0); CALCIUM 10.2 MG/DL (8.5-10.1); CREATININE SERUM 1.4 MG/DL (0.60-1.30); POTASSIUM 3.1 MMOL/L (3.6-5.0); TOTAL PROTEIN 8.2 GM/DL (6.4-8.2)
[2019-04-17] MEDS ORDERED: PHEN-640 PO (16:32)
[2019-04-17] MEDS ORDERED: POTASSIUM CHLORIDE PO (16:32)
== END 2019-04-17 16:10 | disposition home or self-care (01) ==
LOC: SDC 13:06
PROVIDERS: ATTEND Nurse Practitioner Family
DX: E86.0 Dehydration (principal); N12 Tubulo-interstitial nephritis, not specified as acute or chronic
CPT/HCPCS: 36415; 80053; 85027; 96360; 96361; 96374

== ENCOUNTER → 2019-07-22 | Outpatient (CLI) | payer OTHER ==
[~2019-07-22] MED LIST changes: +LIOT5TAB PO; -LIOT5TAB3 PO; +PHEN-640 PO; +POTASSIUM CHLORIDE PO
--- NOTE | 2019-07-22 10:01 | Diagnostic Imaging Report ---
Clinical indication: Patient with chronic kidney disease stage III. Exam: Ultrasound of both kidneys. Comparison: Ultrasound both kidneys dated 06/03/2016. CT scan of the abdomen and pelvis with contrast dated 06/23/2017. Findings: There is a 6 mm x 8 mm x 5 mm circumscribed echogenic area involving the upper midportion of the right kidney which demonstrates no significant central Doppler flow. This area is stable compared to the prior ultrasound exam. This may be related to angiomyolipoma. Otherwise, both kidneys are normal in size, shape, echogenicity and cortical thickness without hydronephrosis, stones, or other focal lesions with the right and left kidneys measuring 10.3 cm and 9.8 cm in their craniocaudal dimensions, respectively. The bladder is fluid-filled with no mass seen. Bilateral ureteral jets are seen. Impression: 1: Stable 8 mm circumscribed echogenic area within the mid to upper portion right kidney likely related to angiomyolipoma. 2: Otherwise, stable and unremarkable ultrasound of both kidneys with no evidence of acute abnormality or hydronephrosis. Dictated by: Dictated on workstation # [id number]
== END ==
LOC: RAD 09:00
PROVIDERS: ATTEND Internal Medicine Nephrology
DX: N18.3 Chronic kidney disease, stage 3 (moderate) (principal)
CPT/HCPCS: 76770

== ENCOUNTER → 2020-12-21 | Outpatient (CLI) | payer OTHER ==
[~2020-12-21] MED LIST changes: -LIOT5TAB PO; +LIOT5TAB10 PO; -TRAM50TA2 PO; +TRM50T PO
--- NOTE | 2020-12-21 17:34 | Diagnostic Imaging Report ---
PROCEDURE: US Renal Bilateral. TECHNIQUE: Multiple real-time grayscale images were obtained over the kidneys in various projections bilaterally. INDICATION: An 8 mm upper pole right renal lesion. COMPARISON: Study of 07/22/2019. FINDINGS: An unchanged 8 mm echogenic focus off the upper pole of the right kidney is most suggestive of a fat-containing angiomyolipoma. No new renal mass. No findings suggestive of stones. The right kidney is 9.1 cm, the left is small and 6.3 cm. Urinary bladder is normal. There is patency of the bilateral ureteral jets. IMPRESSION: Stable echogenic right renal mass subcentimeter most consistent with fat-containing angiomyolipoma. Chronically small but unobstructed left kidney with no hydronephrosis or acute appearing abnormality. Dictated by: Dictated on workstation # [id number]
== END ==
LOC: RAD 15:15
PROVIDERS: ATTEND Internal Medicine Nephrology
DX: N28.89 Other specified disorders of kidney and ureter (principal); N20.0 Calculus of kidney
CPT/HCPCS: 76770

== ENCOUNTER → 2021-01-06 | Outpatient (CLI) | payer OTHER ==
--- NOTE | 2021-01-06 15:31 | Diagnostic Imaging Report ---
PROCEDURE: CT abdomen without contrast. TECHNIQUE: Multiple contiguous axial images were obtained through the abdomen without the use of intravenous contrast. Auto Exposure Controls were utilized during the CT exam to meet ALARA standards for radiation dose reduction. INDICATION: Echogenic focus right renal upper pole anteriorly, subcentimeter. Believed fat-containing angiomyolipoma. CT was performed as further evaluation. COMPARISON: CT abdomen from 06/23/2017. FINDINGS: I cannot identify a mass, mass effect or fat-containing right renal lesion. There is normal fat in the renal sinus. There is no hydronephrosis. There is no evidence for solid or cystic mass. Renal cortical thickness and morphologies appear normal, bilaterally. No radiopaque stone. No hydronephrosis. No perinephric or periureteric edema. Liver, spleen, adrenals, pancreas and bile ducts are unremarkable. The gallbladder is contracted or absent. The aorta is calcified but nonaneurysmal. There is no bowel obstruction or inflammatory process. No ascites. No fluid collection. The lung bases are clear. IMPRESSION: Unremarkable noncontrasted abdominal CT. Dictated by: Dictated on workstation # [id number]
== END ==
LOC: RAD 14:15
PROVIDERS: ATTEND Internal Medicine Nephrology
DX: D17.71 Benign lipomatous neoplasm of kidney (principal)
CPT/HCPCS: 74150

== ENCOUNTER → 2021-07-16 | Outpatient (CLI) | payer OTHER ==
--- NOTE | 2021-07-16 16:33 | Diagnostic Imaging Report ---
INDICATION: Screening. EXAMINATION: Digital mammogram bilateral screening. 3D tomographic images were obtained and reviewed. The current study was also evaluated with a Computer Aided Detection (CAD) system. COMPARISON: This study was compared to the prior exam of 12/28/2015. At this time there are no current complaints. FINDINGS: As noted on the prior study there are bilateral breast implants in place. The implants appear similar to the prior study. There is no evidence for an extracapsular rupture of either implant. The fibroglandular tissue overlying the implants is heterogeneously dense. This does limit the sensitivity of this exam. Overall, there does not appear to have been any significant change since the prior studies. There is no primary or secondary sign of malignancy noted. IMPRESSION: 1. There is no evidence for malignancy. 2. The bilateral breast implants appear to be intact. There is no sign of an extracapsular rupture. 3. The patient should have her annual bilateral screening mammogram on schedule in June of 2022. ACR BI-RADS Category 1: Negative. Result letter will be mailed to the patient. Note: At least 10% of breast cancer is not imaged by mammography. Dictated on workstation # [id number]
== END ==
LOC: RAD 10:00
PROVIDERS: ATTEND Nurse Practitioner Family
DX: Z12.31 Encounter for screening mammogram for malignant neoplasm of breast (principal); Z98.82 Breast implant status
CPT/HCPCS: 77063; 77067

== ENCOUNTER 2021-10-04 10:28 | Outpatient (CLI) | payer OTHER ==
[~2021-10-04] VITALS: Ht 65 cm; Wt 58.9 kg
[2021-10-04 10:34] VITALS: BP 150/89
[2021-10-04] MEDS ORDERED: diphenhydrAMINE 50 MG/ML INJ (BENADRYL) IV PRN (10:45)
[2021-10-04] MEDS ORDERED: ACETAMINOPHEN 500 MG TAB (TYLENOL) PO PRN (10:45)
[2021-10-04] MEDS ORDERED: CASIRIVIMAB/IMDEVIMAB 1,200 MG in NS (IVPB) 250 ML IV ONE (10:45)
[2021-10-04] MEDS ORDERED: ONDANSETRON 4 MG/2 ML (SDV) Z0FRAN IV PRN (10:45)
[2021-10-04] MEDS ORDERED: EPINEPHrine INJECTION 1 MG/ML AMP IM PRN (10:45)
[2021-10-04 11:29] VITALS: BP 150/89
[2021-10-04 12:07] VITALS: BP 138/84
== END 2021-10-04 12:08 ==
LOC: INFUSION 10:28
PROVIDERS: ATTEND Nurse Practitioner Family
DX: U07.1 COVID-19 (principal)

== ENCOUNTER 2022-06-20 12:05 | Day surgery (SDC) | payer OTHER ==
[2022-06-20 12:15] VITALS: BP 122/62
[2022-06-20] MEDS ORDERED: LACTATED RINGERS 2,000 ML IV ONE (12:30)
[2022-06-20] MEDS ORDERED: ONDANSETRON 4 MG/2 ML (SDV) Z0FRAN IV PRN (12:30)
[2022-06-20 12:56] LABS: HEMATOCRIT 39 % (35-52); MEAN CORPUSCULAR HEMOGLOBIN 33 pg (25-34); MEAN CORPUSCULAR HGB CONC 36 g/dL (32-36); MEAN CORPUSCULAR VOLUME 92 fL (80-99); MEAN PLATELET VOLUME 10.3 fL (9.0-12.2); PLATELET COUNT 234 10^3/uL (130-400); WHITE BLOOD COUNT 6.3 10^3/uL (4.3-11.0)
[2022-06-20 13:22] LABS: ALBUMIN 4.2 GM/DL (3.2-4.5); BILIRUBIN,TOTAL 0.4 MG/DL (0.1-1.0); CALCIUM 9.1 MG/DL (8.5-10.1); CREATININE SERUM 1.24 MG/DL (0.60-1.30); MAGNESIUM 1.8 MG/DL (1.6-2.4); POTASSIUM 3.7 MMOL/L (3.6-5.0)
[2022-06-20 13:33] LABS: ERYTHROCYTE SEDIMENTATION RATE 10 MM/HR (0-30)
== END 2022-06-20 14:45 | disposition home or self-care (01) ==
LOC: SDC 12:05
PROVIDERS: ATTEND Nurse Practitioner Family
DX: E86.0 Dehydration (principal); K52.9 Noninfective gastroenteritis and colitis, unspecified
CPT/HCPCS: 36415; 80053; 83735; 85027; 85652; 96360; 96361; 96374

== ENCOUNTER 2023-08-24 09:27 | Emergency (ER) | payer OTHER ==
[~2023-08-24] VITALS: Ht 165 cm; Wt 61.0 kg
--- NOTE | 2023-08-24 10:10 | ED Chest Pain ---
General Chief Complaint: Chest Pain Stated Complaint: HIGH BLOOD PRESSURE | CHEST PAINS Nursing Triage Note: ARRIVED VIA AMB WITH COMPLAINTS OF CHEST PAIN STARTING THIS AM. STATES SHE HAS NOT FELT WELL ALL WEEK WITH RESP ISSUE AND HAS BEEN TAKEN OFF HER BP MED. PT TEARFUL. Source: patient Exam Limitations: no limitations History of Present Illness Date Seen by Provider: Aug 24, 2023 Time Seen by Provider: 09:47 Initial Comments 52-year-old female presents emergency department today for chest pain, hypertension. She states she sees Dr. Ku for chronic kidney issues with an EF of approximately 41%. He took her off of her lisinopril recently so she has been monitoring her blood pressures. 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 She went to be evaluated by the nurse and was found to be hypertensive with a systolic blood pressure of 177 per her report. She has had headaches similar to her current headache but has never had chest pains in the past. Pain is described as sharp stabbing in her left anterior chest wall with radiation to her left shoulder and left neck. It has improved somewhat since her blood pressure has come down a little but states it is still there. She now rates it a 2/10, mild. She has had mild cough over the last week or so. No fevers or chills. No nausea or vomiting. No abdominal pain or changes in bowel or bladder habits. She denies any changes in vision, upper or lower extremity weakness numbness or tingling. All other systems reviewed and negative except documented per HPI. Voice recognition software was used to help create this chart Allergies and Home Medications Allergies Coded Allergies: No Known Drug Allergies (Unverified , 11/04/09) Patient Home Medication List Home Medication List Reviewed: Yes Amlodipine Besylate (Amlodipine Besylate) 5 Mg Tablet, 5 MG PO DAILY Prescribed by: HORACE WHARTON MD on 08/24/23 1115 Estradiol (Estradiol Patch Twice Weekly 0.025mg/hr) 1 Each Patch.tdsw, 1 EACH TD Twice weekly, (Reported) Entered as Reported by: DRE ALMONTE on 06/06/17 1208 Furosemide (Furosemide) 20 Mg Tablet, 20 MG PO DAILY, (Reported) Entered as Reported by: DRE ALMONTE on 06/06/17 1234 Lorazepam (Lorazepam) 2 Mg Tablet, 2 MG PO HS, (Reported) Entered as Reported by: DRE ALMONTE on 06/06/17 1208 Nebivolol HCl (Bystolic) 10 Mg Tab, 10 MG PO DAILY, (Reported) Entered as Reported by: DRE ALMONTE on 06/06/17 1208 Phenazopyridine HCl (Pyridium) 200 Mg Tablet, 1 TAB PO TID, (Reported) Entered as Reported by: SERA ANTHONY on 04/17/19 1632 Triamterene/Hydrochlorothiazid (Triamterene-Hctz 37.5-25 mg Tb) 1 Each Tablet, 1 EACH PO DAILY, (Reported) Entered as Reported by: DRE ALMONTE on 06/06/17 1208 [Potassium Chloride] Unknown Strength , Unknown Dose PO DAILY, (Reported) Entered as Reported by: SERA ANTHONY on 04/17/19 1632 Review of Systems Review of Systems Constitutional: see HPI Past Onlsnnc-Zkkcve-Wohwtj Hx Patient Social History Tobacco Use?: Yes Use of E-Cig and/or Vaping dev: Yes Substance use?: No Alcohol Use?: Yes Alcohol Frequency: Once in a while Seasonal Allergies Seasonal Allergies: No Past Medical History Surgeries: Yes (LASIK,WISDOM TEETH, left side 2 ribs removed, breast augmentation) Adenoidectomy, Appendectomy, Gallbladder, Hysterectomy, Oophorectomy, Tonsillectomy Respiratory: No Cardiac: Yes Hypertension Neurological: No Reproductive Disorders: Yes Sexually Transmitted Disease: No Genitourinary: No Kidney Infection Gastrointestinal: Yes (bloating, difficulty moving bowels) Chronic Constipation Musculoskeletal: Yes Rheumatoid Arthritis, Chronic Back Pain Endocrine: No HEENT: No Cancer: No Psychosocial: Yes Pseudo Seizures, Anxiety Integumentary: No Blood Disorders: No Family Medical History FH: CHF (congestive heart failure) 19 MOTHER FH: COPD (chronic obstructive pulmonary disease) 19 MOTHER Hypercholesterolemia 19 MOTHER Hypertension 19 FATHER 19 MOTHER G8 BROTHER Physical Exam Vital Signs Vital Signs - First Documented 08/24/23 09:30 Temp 36.6 Pulse 93 Resp 16 B/P (MAP) 180/101 (127) Pulse Ox 98 O2 Delivery Room Air Capillary Refill : Less Than 3 Seconds Height, Weight, BMI Height: 5'5.00" Weight: 140lbs. 0.0oz. [id number]; 22.00 BMI Method:Stated General Appearance: No Apparent Distress, WD/WN HEENT: Normal ENT Inspection, Pharynx Normal Neck: Full Range of Motion, Non Tender, Supple Respiratory: Chest Non Tender, Lungs Clear, Normal Breath Sounds, No Accessory Muscle Use, No Respiratory Distress Cardiovascular: Regular Rate, Rhythm, No Murmur, Normal Peripheral Pulses Gastrointestinal: Normal Bowel Sounds, No Organomegaly, Non Tender, Soft Extremity: Normal Capillary Refill, Normal Inspection, Normal Range of Motion, Non Tender, No Calf Tenderness, No Pedal Edema Neurologic/Psychiatric: Alert, Oriented x3 Skin: Normal Color, Warm/Dry Procedures/Interventions Date of ETT Placement: Jun 21, 2017 Time of ETT Placement: 724 Progress/Results/Core Measures Results/Orders Lab Results Laboratory Tests Test 08/24/23 09:40 Range/Units White Blood Count 5.0 4.3-11.0 10^3/uL Red Blood Count 4.36 3.80-5.11 10^6/uL Hemoglobin 14.7 11.5-16.0 g/dL Hematocrit 42 35-52 % Mean Corpuscular Volume 97 80-99 fL Mean Corpuscular Hemoglobin 34 25-34 pg Mean Corpuscular Hemoglobin Concent 35 32-36 g/dL Red Cell Distribution Width 12.5 10.0-14.5 % Platelet Count 226 130-400 10^3/uL Mean Platelet Volume 9.8 9.0-12.2 fL Immature Granulocyte % (Auto) 1 % Neutrophils (%) (Auto) 61 42-75 % Lymphocytes (%) (Auto) 26 12-44 % Monocytes (%) (Auto) 11 0-12 % Eosinophils (%) (Auto) 0 0-10 % Basophils (%) (Auto) 1 0-10 % Neutrophils # (Auto) 3.0 1.8-7.8 10^3/uL Lymphocytes # (Auto) 1.3 1.0-4.0 10^3/uL Monocytes # (Auto) 0.5 0.0-1.0 10^3/uL Eosinophils # (Auto) 0.0 0.0-0.3 10^3/uL Basophils # (Auto) 0.1 0.0-0.1 10^3/uL Immature Granulocyte # (Auto) 0.1 0.0-0.1 10^3/uL Sodium Level 140 135-145 MMOL/L Potassium Level 3.3 L 3.6-5.0 MMOL/L Chloride Level 102 98-107 MMOL/L Carbon Dioxide Level 23 21-32 MMOL/L Anion Gap 15 H 5-14 MMOL/L Blood Urea Nitrogen 6 L 7-18 MG/DL Creatinine 1.24 0.60-1.30 MG/DL Estimat Glomerular Filtration Rate 53 BUN/Creatinine Ratio 5 Glucose Level 93 70-105 MG/DL Calcium Level 9.6 8.5-10.1 MG/DL Corrected Calcium 8.5-10.1 MG/DL Magnesium Level 1.8 1.6-2.4 MG/DL Total Bilirubin 0.4 0.1-1.0 MG/DL Aspartate Amino Transf (AST/SGOT) 52 H 5-34 U/L Alanine Aminotransferase (ALT/SGPT) 75 H 0-55 U/L Alkaline Phosphatase 104 40-136 U/L Troponin I < 0.028 <0.028 NG/ML Total Protein 7.9 6.4-8.2 GM/DL Albumin 4.7 H 3.2-4.5 GM/DL My Orders Orders - AKIKOHORACE DO Ekg Tracing (08/24/23 10:03) Cbc And Automated Diff (08/24/23 10:07) Magnesium (08/24/23 10:07) Chest 1 View, Ap/Pa Only (08/24/23 10:07) Comprehensive Metabolic Panel (08/24/23 10:07) Monitor-Rhythm Ecg Trace Only (08/24/23 10:07) Ed Iv/Invasive Line Start (08/24/23 10:07) Troponin I Tamiko (08/24/23 10:07) Vital Signs/I&O 08/24/23 08/24/23 09:30 11:18 Temp 36.6 Pulse 93 87 Resp 16 16 B/P (MAP) 180/101 (127) 161/91 Pulse Ox 98 97 O2 Delivery Room Air Room Air Blood Pressure Mean: 127 Comment Sinus rhythm with a rate of 105. Normal intervals. Normal axis. No ST or T wave abnormalities. No ectopy. No STEMI. Departure Communication (Admissions) Patient initially hypertensive. This came down on its own without any specific treatment. Her symptoms also resolved spontaneously. EKG is nonischemic, lab workup unremarkable including negative troponin. Chest x-ray is without any acute cardiopulmonary abnormality. Her kidney doctor recently stopped her lisinopril. I went ahead and started her on a very low-dose amlodipine. She is discharged in stable condition with supportive care and close follow-up Impression Primary Impression: Essential (primary) hypertension Additional Impression: Atypical chest pain Disposition: HOME, SELF-CARE Condition: Stable Departure-Patient Inst. Referrals: MARCIE MIN DO (PCP) Primary Care Physician TRINY MIN DNP (Family) Primary Care Physician Patient Instructions: Chest Pain, Adult ED, High Blood Pressure ED Add. Discharge Instructions: As discussed I am starting her on a low-dose of amlodipine, new blood pressure medication which may be easier on your kidneys. Keep a log of your blood pressures twice a day and take these to your primary doctor in the next week for further discussion of blood pressure management. Return to the emergency department for any severe chest pain or if your symptoms change in any way concerning to you. Your chest x-ray is negative for any pneumonias and I think you likely have upper respiratory infection that explains the cough. All discharge instructions reviewed with patient and/or family. Voiced understanding. Scripts Amlodipine Besylate (Amlodipine Besylate) 5 Mg Tablet 5 MG PO DAILY for 14 Days, #14 TAB Prov: HORACE WHARTON DO 08/24/23 HORACE WHARTON DO Aug 24, 2023 10:10
[2023-08-24 10:14] LABS: BASOPHILS # (AUTO) 0.1 10^3/uL (0.0-0.1); BASOPHILS % (AUTO) 1 % (0-10); EOSINOPHILS % (AUTO) 0 % (0-10); HEMATOCRIT 42 % (35-52); HEMOGLOBIN 14.7 g/dL (11.5-16.0); LYMPHOCYTES # (AUTO) 1.3 10^3/uL (1.0-4.0); LYMPHOCYTES % (AUTO) 26 % (12-44); MEAN CORPUSCULAR HEMOGLOBIN 34 pg (25-34); MEAN CORPUSCULAR HGB CONC 35 g/dL (32-36); MEAN CORPUSCULAR VOLUME 97 fL (80-99); MEAN PLATELET VOLUME 9.8 fL (9.0-12.2); MONOCYTES # (AUTO) 0.5 10^3/uL (0.0-1.0); MONOCYTES % (AUTO) 11 % (0-12); NEUTROPHILS % (AUTO) 61 % (42-75); PLATELET COUNT 226 10^3/uL (130-400)
--- NOTE | 2023-08-24 10:41 | Diagnostic Imaging Report ---
INDICATION: Chest pain AP view of chest is obtained with comparison made to study of 06/25/2017 FINDINGS: Heart size and pulmonary vascularity are within normal limits, and the lungs are clear, bilaterally. IMPRESSION: Unremarkable chest. Dictated by: Dictated on workstation # [id number]
[2023-08-24 10:57] LABS: ALANINE AMINOTRANSFERASE 75 U/L (0-55); ALBUMIN 4.7 GM/DL (3.2-4.5); ALKALINE PHOSPHATASE 104 U/L (40-136); BILIRUBIN,TOTAL 0.4 MG/DL (0.1-1.0); BUN/CREATININE RATIO 5; CALCIUM 9.6 MG/DL (8.5-10.1); CARBON DIOXIDE 23 MMOL/L (21-32); CHLORIDE 102 MMOL/L (98-107); CREATININE SERUM 1.24 MG/DL (0.60-1.30); GFR ESTIMATED 53; GLUCOSE 93 MG/DL (70-105); MAGNESIUM 1.8 MG/DL (1.6-2.4); POTASSIUM 3.3 MMOL/L (3.6-5.0); SODIUM 140 MMOL/L (135-145); TOTAL PROTEIN 7.9 GM/DL (6.4-8.2)
[2023-08-24] MEDS ORDERED: AMLO-250 PO (11:15)
[2023-08-24 11:18] VITALS: BP 161/91
== END 2023-08-24 11:18 | disposition home or self-care (01) ==
LOC: EDUNIT# 09:27 → ER 09:28
DX: R07.89 Other chest pain (principal); I10 Essential (primary) hypertension; F17.290 Nicotine dependence, other tobacco product, uncomplicated
CPT/HCPCS: 36415; 71045; 80053; 83735; 84484; 85025; 93005; 93041